=== PATIENT | male | born 1970 ===

== ENCOUNTER 2016-06-28 15:32 | Inpatient (IN) | payer OTHER, MEDICAID ==
[2016-06-28 15:34] VITALS: BMI 29.4
[2016-06-28] MEDS: Ammonium Lactate 12% Cream (140 g) TOP SCH (17:12)
[2016-06-28] MEDS: Piperacillin/Tazobact 3.375 GM in Sodium Chloride 0.9% 100 ML IVPB SCH ×2 (17:13→23:48)
[2016-06-29] MEDS: Piperacillin/Tazobact 3.375 GM in Sodium Chloride 0.9% 100 ML IVPB SCH ×3 (06:06→17:43)
[2016-06-29] MEDS: Levothyroxine 125 MCG TAB PO SCH (06:10)
--- NOTE | 2016-06-29 07:14 | CP.PCM.HP ---
<Marlena Huff - Last Filed: 06/29/16 13:17> History of Present Illness - History of Present Illness History of Present Illness: 46 y/o male initially admitted to inpatient for lower extremity cellulites, ID recommended 2 weeks of IV antibiotics. given pt remain stable through out hospital stay with any acute events there was indication to keep him inpatient so was discharged to TCU to complete antibiotic treatment. Pt seen and examined this morning, does not have any complaints, states lower extremity has improved a lot as far as swelling and redness goes. denies any headache, abdominal pain, nausea, vomiting or diarrhea Present on Admission - Present on Admission Any Indicators Present on Admission: No Review of Systems - Review of Systems All systems: reviewed and no additional remarkable complaints except Review of Systems: Per HPI Past Patient History - Infectious Disease Hx of Infectious Diseases: None - Past Medical History & Family History Past Medical History?: Yes - Past Social History Smoking Status: Former Smoker - CARDIAC Hx Hypertension: Yes - PULMONARY Hx Chronic Obstructive Pulmonary Disease (COPD): Yes - HEMATOLOGICAL/ONCOLOGICAL Hx Blood Disorders: Yes Hx Anemia: Yes Hx Hepatitis C: Yes - INTEGUMENTARY Hx Cellulitis: Yes - MUSCULOSKELETAL/RHEUMATOLOGICAL Hx Arthritis: Yes Hx Falls: No Hx Osteoarthritis: Yes - PSYCHIATRIC Hx Psychosis: Yes Hx Substance Use: Yes 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 - SURGICAL HISTORY Hx Surgeries: No Hx Joint Replacement: Yes (left total knee replacement, right total hip replacement) - ANESTHESIA Hx Anesthesia: Yes Hx Anesthesia Reactions: No Hx Malignant Hyperthermia: No Has any member of the family had a problem w/ anesthesia?: No Meds Allergies/Adverse Reactions: Allergies Allergy/AdvReac Type Severity Reaction Status Date / Time No Known Allergies Allergy Verified 06/28/16 15:34 Physical Exam - Constitutional Appears: Non-toxic, No Acute Distress - Head Exam Head Exam: NORMOCEPHALIC - Eye Exam Eye Exam: Normal appearance, PERRL Pupil Exam: NORMAL ACCOMODATION - ENT Exam ENT Exam: Mucous Membranes Moist - Respiratory Exam Respiratory Exam: Clear to Auscultation Bilateral, NORMAL BREATHING PATTERN. absent: Rhonchi, Wheezes - Cardiovascular Exam Cardiovascular Exam: REGULAR RHYTHM, +S1, +S2 - GI/Abdominal Exam GI & Abdominal Exam: Normal Bowel Sounds, Soft. absent: Tenderness - Extremities Exam Extremities exam: Negative for: calf tenderness Additional comments: erythema has improved, swelling has improved. no tenderness - Neurological Exam Neurological exam: Alert, CN II-XII Intact, Oriented x3 Results - Vital Signs Recent Vital Signs: Last Vital Signs Temp 97.9 F 06/28/16 20:35 Pulse 68 06/28/16 20:35 Resp 20 06/28/16 20:35 BP 113/72 06/28/16 20:35 Pulse Ox 98 06/28/16 20:35 Assessment & Plan - Assessment and Plan (Free Text) Assessment: 46 y/o male admitted to TCU to complete course (1 more week) of antibiotic for lower extremity cellulitis Plan: Lower Extremity Cellulitis Continue with Vanco + Zosyn as ordered (day 8 of 14) continue to monitor resume home medication Physical therapy eval and treat diet- hearty healthy DVT- scd, lovenox <Jas Andino - Last Filed: 07/03/16 17:18> Results - Vital Signs Recent Vital Signs: Last Vital Signs Temp 97.9 F 07/03/16 07:52 Pulse 69 07/03/16 08:32 Resp 20 07/03/16 07:52 BP 112/62 07/03/16 08:32 Pulse Ox 100 07/03/16 07:52 - Labs Result Diagrams: 07/02/16 05:30 07/02/16 05:30 Assessment & Plan - Assessment and Plan (Free Text) Assessment: Patient was personally seen and examined by me in rounds with residents. Available labs and diagnostic data reviewed. Case, Patient's condition and management plan discussed with residents in rounds. Agree with resident's documentation. Plan: As ordered. Jas Andino MD
[2016-06-29] MEDS: hydroCHLOROthiazide-Triamterene 25 mg-37.5 mg Cap UD PO SCH (08:43)
[2016-06-29] MEDS: Ammonium Lactate 12% Cream (140 g) TOP SCH ×2 (08:44→17:43)
[2016-06-29] MEDS: Multivitamin With Minerals Tab PO SCH (08:45)
[2016-06-30] MEDS: Piperacillin/Tazobact 3.375 GM in Sodium Chloride 0.9% 100 ML IVPB SCH ×5 (00:09→23:44)
[2016-06-30] MEDS: Levothyroxine 125 MCG TAB PO SCH (05:51)
--- NOTE | 2016-06-30 08:07 | PN ---
DATE: 06/30/2016 The patient seen and examined. Interim events noted. The patient remains in transitional care unit on IV antibiotic. The patient feels better, has some chronic pain, it is controlled, although does n ot really use any pain medication. PHYSICAL EXAMINATION: GENERAL: The patient is in no acute distress. VITAL SIGNS: Stable. HEART: S1, S2 normal, regular. LUNGS: Good bilateral air exchange. ABDOMEN: Soft, nontender. EXTREMITIES: No edema, no calf swelling, no tenderness, no acute ischemia. CENTRAL NERVOUS SYSTEM: Essentially unchanged. SKIN: Cellulitic changes of skin and lower extremities ____ The patient is functional usually ____ usual self. DIAGNOSTIC DATA: Available diagnostic data reviewed. Overall, the patient's medical good condition is stable. PLAN: As ordered. Jas Andino MD cc: [id number] TT: 06/30/2016 08:06:08 Confirmation # [id number] Dictation # [id number] [place]
[2016-06-30] MEDS: Multivitamin With Minerals Tab PO SCH (09:16)
[2016-06-30] MEDS: hydroCHLOROthiazide-Triamterene 25 mg-37.5 mg Cap UD PO SCH (09:17)
[2016-06-30] MEDS: Ammonium Lactate 12% Cream (140 g) TOP SCH ×2 (09:18→17:04)
[2016-07-01] MEDS: Piperacillin/Tazobact 3.375 GM in Sodium Chloride 0.9% 100 ML IVPB SCH ×4 (05:55→23:14)
[2016-07-01] MEDS: Levothyroxine 125 MCG TAB PO SCH (05:59)
[2016-07-01] MEDS: Multivitamin With Minerals Tab PO SCH (08:53)
[2016-07-01] MEDS: Ammonium Lactate 12% Cream (140 g) TOP SCH ×2 (08:54→18:35)
[2016-07-01] MEDS: hydroCHLOROthiazide-Triamterene 25 mg-37.5 mg Cap UD PO SCH (08:54)
--- NOTE | 2016-07-01 09:17 | PN ---
DATE: 07/01/2016 The patient is seen and examined. Interim events noted. The patient remains in transitional care un it. The patient feels okay. No pain in the leg, although he has chronic pain of the arthritis contr olled adequately. He was able to do his ADLs. No chest pain, no shortness of breath. PHYSICAL EXAMINATION: GENERAL: The patient is in no acute distress. VITAL SIGNS: Stable. HEART: S1, S2 normal, regular. LUNGS: Good bilateral air exchange. ABDOMEN: Soft, nontender. EXTREMITIES: ____. No distal neurovascular compromise. CENTRAL NERVOUS SYSTEM: Essentially unchanged. DIAGNOSTIC DATA: Available diagnostic data reviewed. Overall, the patient's general medical condition is slowly improving. IV antibiotic will be continue d. PLAN: As ordered. Jas Andino MD cc: [id number] TT: 07/01/2016 09:16:50 Confirmation # [id number] Dictation # [id number]
[2016-07-02 05:48] LABS: HEMATOCRIT 36.9 % (35.0-51.0); MEAN CELL VOLUME 98.2 fl (80.0-94.0); MEAN CORPUSCULAR HGB CONC 34.7 g/dL (33.0-37.0); RED CELL DISTRIBUTION WIDTH 12.6 % (11.5-14.5); WHITE BLOOD COUNT 6.1 K/uL (4.8-10.8)
[2016-07-02] MEDS: Levothyroxine 125 MCG TAB PO SCH (06:37)
[2016-07-02 06:42] LABS: ALB/GLOB RATIO 1.2 (1.0-2.1); ALKALINE PHOSPHATASE 51 U/L (38-126); ALT/SGPT 31 U/L (21-72); AST/SGOT 24 U/L (17-59); BILIRUBIN,TOTAL 0.6 mg/dl (0.2-1.3); BLOOD UREA NITROGEN 15 mg/dl (9-20); CALCIUM 9.4 mg/dL (8.4-10.2); CARBON DIOXIDE 27 mmol/L (22-30); CHLORIDE 101 mmol/L (98-107); GFR AFRICAN-AMERICAN > 60; GLUCOSE,RANDOM 82 mg/dL (75-110); POTASSIUM 3.8 MMOL/L (3.6-5.0); SODIUM 145 mmol/l (132-148); TOTAL PROTEIN 7.4 G/DL (6.3-8.2)
[2016-07-02] MEDS: Piperacillin/Tazobact 3.375 GM in Sodium Chloride 0.9% 100 ML IVPB SCH ×4 (06:55→23:52)
--- NOTE | 2016-07-02 08:13 | PN ---
DATE: 07/02/2016 The patient seen and examined. Interim events noted. The patient remains in transitional care unit. The patient feels better. Leg pain is improving. No chest pain or shortness of breath but the chr onic arthritis pain remains. PHYSICAL EXAMINATION: GENERAL: The patient is in no acute distress. VITAL SIGNS: Stable. HEART: S1, S2 normal, regular. LUNGS: Good bilateral air entry. ABDOMEN: Soft, nontender. EXTREMITIES: Cellulitis is remarkably improving. Ulcer healed. No sign of acute distal neurovascul ar compromise. CENTRAL NERVOUS SYSTEM: Essentially unchanged. DIAGNOSTIC DATA: Available diagnostic data reviewed. CBC and CMP today morning is acceptable. Overall, patient's general medical condition is stable and improving. Case discussed with orthopedic over the weekend. The patient might go for hip replacement once cellulitis treatment is over. PLAN: As ordered. Jas Andino MD cc: [id number] TT: 07/02/2016 08:13:04 Confirmation # [id number] Dictation # [id number] jeremy
[2016-07-02] MEDS: hydroCHLOROthiazide-Triamterene 25 mg-37.5 mg Cap UD PO SCH (09:18)
[2016-07-02] MEDS: Ammonium Lactate 12% Cream (140 g) TOP SCH ×2 (09:20→17:29)
[2016-07-02] MEDS: Multivitamin With Minerals Tab PO SCH (09:21)
--- NOTE | 2016-07-02 13:20 | RAD ---
PROCEDURE: Left femur HISTORY: possible surgery left hip COMPARISON: 06/27/2016 pelvis left hip. TECHNIQUE: Standard protocol for this study/examination. FINDINGS: Stable findings proximal left femur. Severe degenerative changes, evidence of avascular necrosis, partial collapse of left femoral head, subchondral cyst formation and proliferative changes. No abnormalities identified with respect to visualize components left TKA. IMPRESSION: No acute findings related to/accounting for the clinical presentation.
--- NOTE | 2016-07-02 13:29 | RAD ---
PROCEDURE: Pelvis left hip HISTORY: possible surgery of left hip COMPARISON: 06/27/2016 left hip. July 02, 2016. Left femur reported separately TECHNIQUE: Standard protocol for this study/examination. 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 This includes deformity, partial collapse of the femoral head. Subchondral cyst formation. Proliferative degenerative changes involving the joint noted. Intact pelvic ring. Unremarkable, as visualized right CRYSTAL. IMPRESSION: Minor-severe AVN left hip.
--- NOTE | 2016-07-02 20:20 | CP.PCM.PN ---
Subjective - Date & Time of Evaluation Date of Evaluation: 07/02/16 Time of Evaluation: 20:20 - Subjective Subjective: ID NOTE WOULD RX C IV ANTIBIOTICS FOR THIS WEEK PRIOR TO CONDIDERATION OF ANY SURGERY Objective - Vital Signs/Intake and Output Vital Signs (last 24 hours): Temp Pulse Resp BP Pulse Ox 97.3 F L 70 20 120/71 98 07/02/16 16:31 07/02/16 20:15 07/02/16 16:31 07/02/16 20:15 07/02/16 16:31 - Medications Medications: Current Medications Acetaminophen (Tylenol 325mg Tab) 650 mg PO Q6 PRN PRN Reason: Pain, Mild (1-3) Cholecalciferol (Vitamin D) 1,000 iu PO DAILY [facility] Last Admin: 07/02/16 09:21 Dose: 1,000 iu Diphenhydramine HCl (Benadryl) 50 mg PO Q6 PRN PRN Reason: Itching / Pruritus Last Admin: 06/28/16 21:06 Dose: 50 mg Ferrous Sulfate (Feosol) 325 mg PO DAILY [facility] Last Admin: 07/02/16 09:19 Dose: 325 mg Piperacillin Sod/Tazobactam (Sod 3.375 gm/ Sodium Chloride) 100 mls @ 100 mls/ hr IVPB 0600,1200,1800,0000 [facility] Last Admin: 07/02/16 17:31 Dose: 100 mls/hr Vancomycin HCl 1.25 gm/ Sodium (Chloride) 250 mls @ 166.667 mls/hr IVPB Q12@ 0500,1700 [facility] Last Admin: 07/02/16 18:52 Dose: 166.667 mls/hr Lactic Acid (Lac-Hydrin 12% Cream (140 G)) 1 ea TOP BID [facility] Last Admin: 07/02/16 17:29 Dose: 1 appful Levothyroxine Sodium (Synthroid) 125 mcg PO DAILY@0630 [facility] Last Admin: 07/02/16 06:37 Dose: 125 mcg Metoprolol Tartrate (Lopressor) 50 mg PO Q12 [facility] Last Admin: 07/02/16 20:15 Dose: 50 mg Multivitamins/Minerals (Therapeutic-M Tab) 1 tab PO DAILY [facility] Last Admin: 07/02/16 09:21 Dose: 1 tab Triamterene/HCTZ (Dyazide 25 Mg-37.5 Mg) 1 cap PO DAILY [facility] Last Admin: 07/02/16 09:18 Dose: 1 cap - Labs Labs: 07/02/16 05:30 07/02/16 05:30
[2016-07-03] MEDS: Piperacillin/Tazobact 3.375 GM in Sodium Chloride 0.9% 100 ML IVPB SCH ×3 (06:03→17:50)
[2016-07-03] MEDS: Levothyroxine 125 MCG TAB PO SCH (06:09)
--- NOTE | 2016-07-03 07:27 | CP.PCM.PN ---
<Marlena Huff - Last Filed: 07/03/16 10:37> Subjective - Date & Time of Evaluation Date of Evaluation: 07/03/16 Time of Evaluation: 08:30 - Subjective Subjective: Pt seen and examined at bedside, does not have any complaints. Per nurse senior software development manager and other pts on the floor, pt screams out a lot of bible verses and random stuff and it not entirely organized. Objective - Vital Signs/Intake and Output Vital Signs (last 24 hours): Temp Pulse Resp BP Pulse Ox 97.2 F L 70 20 120/71 99 07/02/16 20:23 07/02/16 20:23 07/02/16 20:23 07/02/16 20:23 07/02/16 20:23 - Medications Medications: Current Medications Acetaminophen (Tylenol 325mg Tab) 650 mg PO Q6 PRN PRN Reason: Pain, Mild (1-3) Cholecalciferol (Vitamin D) 1,000 iu PO DAILY [facility] Last Admin: 07/02/16 09:21 Dose: 1,000 iu Diphenhydramine HCl (Benadryl) 50 mg PO Q6 PRN PRN Reason: Itching / Pruritus Last Admin: 06/28/16 21:06 Dose: 50 mg Ferrous Sulfate (Feosol) 325 mg PO DAILY [facility] Last Admin: 07/02/16 09:19 Dose: 325 mg Piperacillin Sod/Tazobactam (Sod 3.375 gm/ Sodium Chloride) 100 mls @ 100 mls/ hr IVPB 0600,1200,1800,0000 [facility] Last Admin: 07/03/16 06:03 Dose: 100 mls/hr Vancomycin HCl 1.25 gm/ Sodium (Chloride) 250 mls @ 166.667 mls/hr IVPB Q12@ 0500,1700 [facility] Last Admin: 07/03/16 04:03 Dose: 166.667 mls/hr Lactic Acid (Lac-Hydrin 12% Cream (140 G)) 1 ea TOP BID [facility] Last Admin: 07/02/16 17:29 Dose: 1 appful Levothyroxine Sodium (Synthroid) 125 mcg PO DAILY@0630 [facility] Last Admin: 07/03/16 06:09 Dose: 125 mcg Metoprolol Tartrate (Lopressor) 50 mg PO Q12 [facility] Last Admin: 07/02/16 20:15 Dose: 50 mg Multivitamins/Minerals (Therapeutic-M Tab) 1 tab PO DAILY [facility] Last Admin: 07/02/16 09:21 Dose: 1 tab Triamterene/HCTZ (Dyazide 25 Mg-37.5 Mg) 1 cap PO DAILY [facility] Last Admin: 07/02/16 09:18 Dose: 1 cap - Labs Labs: 07/02/16 05:30 07/02/16 05:30 - Constitutional Appears: Non-toxic, No Acute Distress - Head Exam Head Exam: NORMOCEPHALIC - Eye Exam Eye Exam: Normal appearance, PERRL Pupil Exam: NORMAL ACCOMODATION - ENT Exam ENT Exam: Mucous Membranes Moist - Respiratory Exam Respiratory Exam: Clear to Ausculation Bilateral, NORMAL BREATHING PATTERN. absent: Rhonchi, Wheezes - Cardiovascular Exam Cardiovascular Exam: REGULAR RHYTHM, +S1, +S2 - GI/Abdominal Exam GI & Abdominal Exam: Soft, Normal Bowel Sounds. absent: Tenderness - Extremities Exam Additional comments: Lower extremity erythema is improving greatly, and swelling is improving as well - Neurological Exam Neurological Exam: Alert, Awake, CN II-XII Intact - Psychiatric Exam Additional comments: flight of ideas, pressured speech Assessment and Plan - Assessment and Plan (Free Text) Assessment: 46 y/o male admitted to TCU to complete course (1 more week) of antibiotic for lower extremity cellulitis Plan: Lower Extremity Cellulitis Continue with Vanco + Zosyn as ordered (day 12 of 14) continue to monitor flight of ideas, pressured speech- psychiatry re-consulted resume home medication Physical therapy eval and treat diet- hearty healthy DVT- scd, lovenox Disposition: PT to be readmitted inpatient for HIP replacement surgery following completion of antibiotics <Jas Andino K - Last Filed: 07/03/16 17:19> Objective - Vital Signs/Intake and Output Vital Signs (last 24 hours): Temp Pulse Resp BP Pulse Ox 97.9 F 69 20 112/62 100 07/03/16 07:52 07/03/16 08:32 07/03/16 07:52 07/03/16 08:32 07/03/16 07:52 - Medications Medications: Current Medications Acetaminophen (Tylenol 325mg Tab) 650 mg PO Q6 PRN PRN Reason: Pain, Mild (1-3) Cholecalciferol (Vitamin D) 1,000 iu PO DAILY [facility] Last Admin: 07/03/16 08:32 Dose: 1,000 iu Diphenhydramine HCl (Benadryl) 50 mg PO Q6 PRN PRN Reason: Itching / Pruritus Last Admin: 06/28/16 21:06 Dose: 50 mg Ferrous Sulfate (Feosol) 325 mg PO DAILY [facility] Last Admin: 07/03/16 08:32 Dose: 325 mg Piperacillin Sod/Tazobactam (Sod 3.375 gm/ Sodium Chloride) 100 mls @ 100 mls/ hr IVPB 0600,1200,1800,0000 [facility] Last Admin: 07/03/16 12:31 Dose: 100 mls/hr Vancomycin HCl 1.25 gm/ Sodium (Chloride) 250 mls @ 166.667 mls/hr IVPB Q12@ 0500,1700 [facility] Last Admin: 07/03/16 04:03 Dose: 166.667 mls/hr Lactic Acid (Lac-Hydrin 12% Cream (140 G)) 1 ea TOP BID [facility] Last Admin: 07/03/16 08:32 Dose: 1 appful Levothyroxine Sodium (Synthroid) 125 mcg PO DAILY@0630 [facility] Last Admin: 07/03/16 06:09 Dose: 125 mcg Metoprolol Tartrate (Lopressor) 50 mg PO Q12 [facility] Last Admin: 07/03/16 08:32 Dose: 50 mg Multivitamins/Minerals (Therapeutic-M Tab) 1 tab PO DAILY [facility] Last Admin: 07/03/16 08:32 Dose: 1 tab Triamterene/HCTZ (Dyazide 25 Mg-37.5 Mg) 1 cap PO DAILY [facility] Last Admin: 07/03/16 08:32 Dose: 1 cap - Labs Labs: 07/02/16 05:30 07/02/16 05:30 Assessment and Plan - Assessment and Plan (Free Text) Assessment: Patient was personally seen and examined by me in rounds with residents. Available labs and diagnostic data reviewed. Case, Patient's condition and management plan discussed with residents in rounds. Agree with resident's documentation. Plan: As ordered. Jas Andino MD
[2016-07-03] MEDS: Ammonium Lactate 12% Cream (140 g) TOP SCH ×2 (08:32→17:50)
[2016-07-03] MEDS: Multivitamin With Minerals Tab PO SCH (08:32)
[2016-07-03] MEDS: hydroCHLOROthiazide-Triamterene 25 mg-37.5 mg Cap UD PO SCH (08:32)
--- NOTE | 2016-07-03 13:50 | CP.PCM.CON ---
History of Present Illness - History of Present Illness History of Present Illness: Psychiatry consult called for pressured and disorganized speech CC: "I don't need to take medications" HPI: 46 y/o male initially admitted to inpatient for lower extremity cellulites , ID recommended 2 weeks of IV antibiotics, discharged to TCU to complete antibiotic treatment. Patient was irritable that he was speaking with the psychiatrist. He was able to clearly state that he is not interested in psychiatric treatment at this time. As per previous consult information: He is 5 years sober from an alcohol and drug dependence that he states was "very bad" pt denies being in any psychiatric treatment or taking psychiatric medications. pt states he follows up regularly with his medical appointments and cares for self. he denies any legal problems. pt was unaware that psychiatry would be consulted and was a little defensive because of this. he does admit that he talks to himself constantly. he states he does not have friends and this is how he socializes with himself. he does not directly admit to hearing voices, and he does not appear to be responding to internal stimuli currently. he denies that he has command hallucinations. he denies that he feels depressed. he denies that he is having any thoughts to harm himself. his thoughts are a bit circumstantial and he does express himself in a vague and round-about manner. he declines need for psychiatric treatment. Past psych: reports being treated in the past while he was using drugs. reports suicidal behaviors when taking drugs. denies recent treatment Social history: lives with mother. denies current legal problems. states he attends mass regularly Substance use: denies current use. states he's 5 yeas sober. states he abused alcohol and "hard drugs" no specifics given. Medical: as per h + p note. currently in hospital for cellulitis MSE: A + O x 3, calm, but irritated that he was speaking with a psychiatrist, good eye contact, speech normal rate/rhythm/volume; thought process-not linear but coherent; thought content- hyperreligious, denies AH/VH/SI/HI; insight/ judgment-fair Assessment: Alcohol dependence in sustained remission Polysubstance dependence in remission r/o psychotic disorder unspecified Recommendation: -Would not recommend any psychiatric intervention at this point as pt's symptoms are not interfering with his treatment -Patient not agreeable to psychiatric medications, treatment or hospitalization and does not meet criteria for involuntary psychiatric admission -Re-consult with further questions, Dr. De Luna [phone] Past Patient History - Infectious Disease Hx of Infectious Diseases: None - Past Medical History & Family History Past Medical History?: Yes - Past Social History Smoking Status: Former Smoker - CARDIAC Hx Hypertension: Yes - PULMONARY Hx Chronic Obstructive Pulmonary Disease (COPD): Yes - HEMATOLOGICAL/ONCOLOGICAL Hx Blood Disorders: Yes Hx Anemia: Yes Hx Hepatitis C: Yes - INTEGUMENTARY Hx Cellulitis: Yes - MUSCULOSKELETAL/RHEUMATOLOGICAL Hx Arthritis: Yes Hx Falls: No Hx Osteoarthritis: Yes - PSYCHIATRIC Hx Psychosis: Yes Hx Substance Use: Yes 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 - SURGICAL HISTORY Hx Surgeries: No Hx Joint Replacement: Yes (left total knee replacement, right total hip replacement) - ANESTHESIA Hx Anesthesia: Yes Hx Anesthesia Reactions: No Hx Malignant Hyperthermia: No Has any member of the family had a problem w/ anesthesia?: No Meds Allergies/Adverse Reactions: Allergies Allergy/AdvReac Type Severity Reaction Status Date / Time No Known Allergies Allergy Verified 06/28/16 15:34 - Medications Medications: Current Medications Acetaminophen (Tylenol 325mg Tab) 650 mg PO Q6 PRN PRN Reason: Pain, Mild (1-3) Cholecalciferol (Vitamin D) 1,000 iu PO DAILY [facility] Last Admin: 07/03/16 08:32 Dose: 1,000 iu Diphenhydramine HCl (Benadryl) 50 mg PO Q6 PRN PRN Reason: Itching / Pruritus Last Admin: 06/28/16 21:06 Dose: 50 mg Ferrous Sulfate (Feosol) 325 mg PO DAILY [facility] Last Admin: 07/03/16 08:32 Dose: 325 mg Piperacillin Sod/Tazobactam (Sod 3.375 gm/ Sodium Chloride) 100 mls @ 100 mls/ hr IVPB 0600,1200,1800,0000 [facility] Last Admin: 07/03/16 12:31 Dose: 100 mls/hr Vancomycin HCl 1.25 gm/ Sodium (Chloride) 250 mls @ 166.667 mls/hr IVPB Q12@ 0500,1700 [facility] Last Admin: 07/03/16 04:03 Dose: 166.667 mls/hr Lactic Acid (Lac-Hydrin 12% Cream (140 G)) 1 ea TOP BID [facility] Last Admin: 07/03/16 08:32 Dose: 1 appful Levothyroxine Sodium (Synthroid) 125 mcg PO DAILY@0630 [facility] Last Admin: 07/03/16 06:09 Dose: 125 mcg Metoprolol Tartrate (Lopressor) 50 mg PO Q12 [facility] Last Admin: 07/03/16 08:32 Dose: 50 mg Multivitamins/Minerals (Therapeutic-M Tab) 1 tab PO DAILY [facility] Last Admin: 07/03/16 08:32 Dose: 1 tab Triamterene/HCTZ (Dyazide 25 Mg-37.5 Mg) 1 cap PO DAILY [facility] Last Admin: 07/03/16 08:32 Dose: 1 cap Results - Vital Signs Recent Vital Signs: Last Vital Signs Temp 97.9 F 07/03/16 07:52 Pulse 69 07/03/16 08:32 Resp 20 07/03/16 07:52 BP 112/62 07/03/16 08:32 Pulse Ox 100 07/03/16 07:52 - Labs Result Diagrams: 07/02/16 05:30 07/02/16 05:30
--- NOTE | 2016-07-03 14:27 | PN ---
DATE: 07/03/2016 The patient seen and examined. Interim events noted. The patient remains in transitional care unit. Feels okay, no specific complaint, no chest pain or shortness of breath. PHYSICAL EXAMINATION: GENERAL: The patient is in no acute distress. VITAL SIGNS: Stable. Physical exam is essentially unchanged. ____. PLAN: As ordered. Jas Andino MD cc: [id number] TT: 07/03/2016 10:40:33 Confirmation # [id number] Dictation # [id number] in 07/03/2016 13:26:31 [place]
[2016-07-04] MEDS: Piperacillin/Tazobact 3.375 GM in Sodium Chloride 0.9% 100 ML IVPB SCH ×4 (00:12→18:35)
[2016-07-04] MEDS: Levothyroxine 125 MCG TAB PO SCH (05:55)
[2016-07-04] MEDS: hydroCHLOROthiazide-Triamterene 25 mg-37.5 mg Cap UD PO SCH (08:41)
[2016-07-04] MEDS: Multivitamin With Minerals Tab PO SCH (08:42)
[2016-07-04] MEDS: Ammonium Lactate 12% Cream (140 g) TOP SCH ×2 (08:43→18:35)
--- NOTE | 2016-07-04 10:57 | CP.PCM.PN ---
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 He denies any pain in his lower extremity but has pain in the hip Objective - Vital Signs/Intake and Output Vital Signs (last 24 hours): Temp Pulse Resp BP Pulse Ox 97.8 F 70 20 129/66 100 07/04/16 08:42 07/04/16 08:42 07/04/16 08:42 07/04/16 08:42 07/04/16 08:42 - Medications Medications: Current Medications Acetaminophen (Tylenol 325mg Tab) 650 mg PO Q6 PRN PRN Reason: Pain, Mild (1-3) Cholecalciferol (Vitamin D) 1,000 iu PO DAILY [facility] Last Admin: 07/04/16 08:42 Dose: 1,000 iu Diphenhydramine HCl (Benadryl) 50 mg PO Q6 PRN PRN Reason: Itching / Pruritus Last Admin: 06/28/16 21:06 Dose: 50 mg Ferrous Sulfate (Feosol) 325 mg PO DAILY [facility] Last Admin: 07/04/16 08:42 Dose: 325 mg Piperacillin Sod/Tazobactam (Sod 3.375 gm/ Sodium Chloride) 100 mls @ 100 mls/ hr IVPB 0600,1200,1800,0000 [facility] Last Admin: 07/04/16 05:48 Dose: 100 mls/hr Vancomycin HCl 1.25 gm/ Sodium (Chloride) 250 mls @ 166.667 mls/hr IVPB Q12@ 0500,1700 [facility] Last Admin: 07/04/16 04:12 Dose: 166.667 mls/hr Lactic Acid (Lac-Hydrin 12% Cream (140 G)) 1 ea TOP BID [facility] Last Admin: 07/04/16 08:43 Dose: 1 appful Levothyroxine Sodium (Synthroid) 125 mcg PO DAILY@0630 [facility] Last Admin: 07/04/16 05:55 Dose: 125 mcg Metoprolol Tartrate (Lopressor) 50 mg PO Q12 [facility] Last Admin: 07/04/16 08:41 Dose: 50 mg Multivitamins/Minerals (Therapeutic-M Tab) 1 tab PO DAILY [facility] Last Admin: 07/04/16 08:42 Dose: 1 tab Rivaroxaban (Xarelto) 20 mg PO DAILY@0800 [facility] PRN Reason: Protocol Last Admin: 07/04/16 08:41 Dose: 20 mg Triamterene/HCTZ (Dyazide 25 Mg-37.5 Mg) 1 cap PO DAILY [facility] Last Admin: 07/04/16 08:41 Dose: 1 cap - Labs Labs: 07/02/16 05:30 07/02/16 05:30 - Constitutional Appears: Non-toxic, No Acute Distress - Head Exam Head Exam: NORMOCEPHALIC - Eye Exam Eye Exam: Normal appearance, PERRL Pupil Exam: NORMAL ACCOMODATION - ENT Exam ENT Exam: Mucous Membranes Moist - Respiratory Exam Respiratory Exam: Clear to Ausculation Bilateral, NORMAL BREATHING PATTERN. absent: Rhonchi, Wheezes - GI/Abdominal Exam GI & Abdominal Exam: Soft, Normal Bowel Sounds - Extremities Exam Extremities Exam: absent: Calf Tenderness Additional comments: lower extremity redness and swelling improving - Neurological Exam Neurological Exam: Awake, CN II-XII Intact Assessment and Plan - Assessment and Plan (Free Text) Assessment: 46 y/o male admitted to TCU to complete course of antibiotic for lower extremity cellulitis Plan: Lower Extremity Cellulitis Continue with Vanco + Zosyn as ordered (day 13 of 14) continue to monitor flight of ideas, pressured speech- psychiatry re-consulted Psychiatry recommendation appreciated resume home medication Physical therapy eval and treat diet- hearty healthy DVT- scd, lovenox Disposition: PT to be readmitted inpatient for HIP replacement surgery following completion of antibiotics <Jas Andino K - Last Filed: 07/09/16 18:25> Objective - Vital Signs/Intake and Output Vital Signs (last 24 hours): Temp Pulse Resp BP Pulse Ox 97 F L 67 20 120/77 99 07/09/16 16:20 07/09/16 16:20 07/09/16 16:20 07/09/16 16:20 07/09/16 16:20 - Medications Medications: Current Medications Acetaminophen (Tylenol 325mg Tab) 650 mg PO Q6 PRN PRN Reason: Pain, Mild (1-3) Cholecalciferol (Vitamin D) 1,000 iu PO DAILY [facility] Last Admin: 07/09/16 08:27 Dose: 1,000 iu Diphenhydramine HCl (Benadryl) 50 mg PO Q6 PRN PRN Reason: Itching / Pruritus Last Admin: 06/28/16 21:06 Dose: 50 mg Ferrous Sulfate (Feosol) 325 mg PO DAILY [facility] Last Admin: 07/09/16 08:27 Dose: 325 mg Ertapenem 1 gm/ Sodium (Chloride) 100 mls @ 100 mls/hr IVPB DAILY [facility] Last Admin: 07/09/16 08:28 Dose: 100 mls/hr Vancomycin HCl 1 gm/ Sodium (Chloride) 250 mls @ 166.667 mls/hr IVPB 0500,1700 [facility] Last Admin: 07/09/16 17:18 Dose: 166.667 mls/hr Lactic Acid (Lac-Hydrin 12% Cream (140 G)) 1 ea TOP BID [facility] Last Admin: 07/09/16 17:18 Dose: 1 appful Levothyroxine Sodium (Synthroid) 125 mcg PO DAILY@0630 [facility] Last Admin: 07/09/16 07:20 Dose: 125 mcg Metoprolol Tartrate (Lopressor) 50 mg PO Q12 [facility] Last Admin: 07/09/16 08:27 Dose: 50 mg Multivitamins/Minerals (Therapeutic-M Tab) 1 tab PO DAILY [facility] Last Admin: 07/09/16 08:27 Dose: 1 tab Triamterene/HCTZ (Dyazide 25 Mg-37.5 Mg) 1 cap PO DAILY [facility] Last Admin: 07/09/16 08:27 Dose: 1 cap - Labs Labs: 07/02/16 05:30 07/05/16 06:48 Assessment and Plan - Assessment and Plan (Free Text) Assessment: Patient was personally seen and examined by me in rounds with residents. Available labs and diagnostic data reviewed. Case, Patient's condition and management plan discussed with residents in rounds. Agree with resident's documentation. Plan: As ordered. Jas Andino MD
--- NOTE | 2016-07-04 19:24 | CP.PCM.PN ---
Subjective - Date & Time of Evaluation Date of Evaluation: 07/04/16 Time of Evaluation: 19:20 - Subjective Subjective: ID NOTE STILL HAS CHRONIC STASIS DERMATITIS/CELLULITIS BUT NO WEEPING AT PRESENT WOULD WANT HIM TO RECEIVE AT LEAST 4 WEEKS IV ANTIBIOTICS BEFORE CONSIDERING ANY JOINT REPLACEMENT WILL DISCUSS C Objective - Vital Signs/Intake and Output Vital Signs (last 24 hours): Temp Pulse Resp BP Pulse Ox 96.6 F L 67 20 119/73 95 07/04/16 16:30 07/04/16 16:30 07/04/16 16:30 07/04/16 16:30 07/04/16 16:30 - Medications Medications: Current Medications Acetaminophen (Tylenol 325mg Tab) 650 mg PO Q6 PRN PRN Reason: Pain, Mild (1-3) Cholecalciferol (Vitamin D) 1,000 iu PO DAILY [facility] Last Admin: 07/04/16 08:42 Dose: 1,000 iu Diphenhydramine HCl (Benadryl) 50 mg PO Q6 PRN PRN Reason: Itching / Pruritus Last Admin: 06/28/16 21:06 Dose: 50 mg Ferrous Sulfate (Feosol) 325 mg PO DAILY [facility] Last Admin: 07/04/16 08:42 Dose: 325 mg Piperacillin Sod/Tazobactam (Sod 3.375 gm/ Sodium Chloride) 100 mls @ 100 mls/ hr IVPB 0600,1200,1800,0000 [facility] Last Admin: 07/04/16 18:35 Dose: 100 mls/hr Vancomycin HCl 1.25 gm/ Sodium (Chloride) 250 mls @ 166.667 mls/hr IVPB Q12@ 0500,1700 [facility] Last Admin: 07/04/16 16:25 Dose: 166.667 mls/hr Lactic Acid (Lac-Hydrin 12% Cream (140 G)) 1 ea TOP BID [facility] Last Admin: 07/04/16 18:35 Dose: Not Given Levothyroxine Sodium (Synthroid) 125 mcg PO DAILY@0630 [facility] Last Admin: 07/04/16 05:55 Dose: 125 mcg Metoprolol Tartrate (Lopressor) 50 mg PO Q12 [facility] Last Admin: 07/04/16 08:41 Dose: 50 mg Multivitamins/Minerals (Therapeutic-M Tab) 1 tab PO DAILY [facility] Last Admin: 07/04/16 08:42 Dose: 1 tab Rivaroxaban (Xarelto) 20 mg PO DAILY@0800 [facility] PRN Reason: Protocol Last Admin: 07/04/16 08:41 Dose: 20 mg Triamterene/HCTZ (Dyazide 25 Mg-37.5 Mg) 1 cap PO DAILY [facility] Last Admin: 07/04/16 08:41 Dose: 1 cap - Labs Labs: 07/02/16 05:30 07/02/16 05:30
[2016-07-05] MEDS: Levothyroxine 125 MCG TAB PO SCH (05:34)
[2016-07-05 07:17] LABS: BLOOD UREA NITROGEN 12 mg/dl (9-20); CALCIUM 9.3 mg/dL (8.4-10.2); CARBON DIOXIDE 28 mmol/L (22-30); CHLORIDE 103 mmol/L (98-107); GFR AFRICAN-AMERICAN > 60; GLUCOSE,RANDOM 77 mg/dL (75-110); POTASSIUM 3.6 MMOL/L (3.6-5.0); SODIUM 144 mmol/l (132-148)
[2016-07-05] MEDS ORDERED: Pneumococcal 23-Valent Vaccine IM ONE (08:58)
[2016-07-05] MEDS: Multivitamin With Minerals Tab PO SCH (08:59)
[2016-07-05] MEDS: hydroCHLOROthiazide-Triamterene 25 mg-37.5 mg Cap UD PO SCH (09:00)
[2016-07-05] MEDS: Ammonium Lactate 12% Cream (140 g) TOP SCH ×2 (09:02→17:26)
--- NOTE | 2016-07-05 09:03 | PN ---
DATE: 07/05/2016 The patient is seen and examined. Interim events noted. Consults noted and appreciated. Infectious disease followup and intervention noted and appreciated. The patient remains in transitional care u nit on IV antibiotic for cellulitis. The patient feels okay. No chest pain, no shortness of breath. PHYSICAL EXAMINATION: GENERAL: The patient is in no acute distress. VITAL SIGNS: Stable. HEART: S1, S2 normal, regular. LUNGS: Good bilateral air entry. ABDOMEN: Soft, nontender. EXTREMITIES: Cellulitis is improving. ____, no calf swelling, no tenderness, no acute ischemia, no distal acute neurovascular compromise. CENTRAL NERVOUS SYSTEM: Essentially unchanged. DIAGNOSTIC DATA: Available diagnostic data reviewed. Overall, the patient's general medical condition is stable. PLAN: As ordered. Jas Andino MD cc: [id number] TT: 07/05/2016 09:02:59 Confirmation # [id number] Dictation # [id number] aparna
[2016-07-06] MEDS: Levothyroxine 125 MCG TAB PO SCH (05:42)
[2016-07-06] MEDS: Multivitamin With Minerals Tab PO SCH (08:40)
[2016-07-06] MEDS: Ammonium Lactate 12% Cream (140 g) TOP SCH ×2 (08:41→21:50)
[2016-07-06] MEDS: hydroCHLOROthiazide-Triamterene 25 mg-37.5 mg Cap UD PO SCH (08:45)
--- NOTE | 2016-07-06 08:52 | PN ---
DATE: 07/06/2016 The patient seen and examined. Interim events noted. The patient remains in transitional care unit on IV antibiotic. The patient feels okay. No specific complaint. No chest pain, no shortness of br eath. Leg pain improved. PHYSICAL EXAMINATION: GENERAL: The patient is in no acute distress. VITAL SIGNS: Stable. Physical exam is essentially unchanged. is improving. Overall, patient's general condition is stable and improving. PLAN: As ordered. Jas Andino MD cc: [id number] TT: 07/06/2016 08:52:01 Confirmation # [id number] Dictation # [id number] en
[2016-07-07] MEDS: Levothyroxine 125 MCG TAB PO SCH (06:44)
--- NOTE | 2016-07-07 08:31 | PN ---
DATE: 07/07/2016 The patient seen and examined. Interim events noted. The patient remains in transitional care unit. The patient feels okay. No specific medical complaint. Physical exam is essentially unchanged. Cellulitis is slowly resolving. DIAGNOSTIC DATA: Available diagnostic data reviewed. Overall, patient's general medical condition is stable. PLAN: As ordered. Jas Andino MD cc: [id number] TT: 07/07/2016 08:30:47 Confirmation # [id number] Dictation # [id number] jn
[2016-07-07] MEDS: Ammonium Lactate 12% Cream (140 g) TOP SCH ×2 (08:51→16:59)
[2016-07-07] MEDS: hydroCHLOROthiazide-Triamterene 25 mg-37.5 mg Cap UD PO SCH (08:51)
[2016-07-07] MEDS: Multivitamin With Minerals Tab PO SCH (08:52)
[2016-07-08] MEDS: Levothyroxine 125 MCG TAB PO SCH (07:06)
[2016-07-08] MEDS: hydroCHLOROthiazide-Triamterene 25 mg-37.5 mg Cap UD PO SCH (08:48)
[2016-07-08] MEDS: Multivitamin With Minerals Tab PO SCH (08:49)
[2016-07-08] MEDS: Ammonium Lactate 12% Cream (140 g) TOP SCH ×2 (08:50→17:29)
--- NOTE | 2016-07-08 17:49 | CP.PCM.PN ---
Subjective - Date & Time of Evaluation Date of Evaluation: 07/08/16 Time of Evaluation: 17:49 - Subjective Subjective: ID NOTE HAVE ADJUSTED DOSE OF VANCOMYCIN CHECK LABS Objective - Vital Signs/Intake and Output Vital Signs (last 24 hours): Temp Pulse Resp BP Pulse Ox 97.5 F L 60 20 118/69 100 07/08/16 08:19 07/08/16 08:49 07/08/16 08:19 07/08/16 08:49 07/08/16 08:19 - Medications Medications: Current Medications Acetaminophen (Tylenol 325mg Tab) 650 mg PO Q6 PRN PRN Reason: Pain, Mild (1-3) Cholecalciferol (Vitamin D) 1,000 iu PO DAILY [facility] Last Admin: 07/08/16 08:49 Dose: 1,000 iu Diphenhydramine HCl (Benadryl) 50 mg PO Q6 PRN PRN Reason: Itching / Pruritus Last Admin: 06/28/16 21:06 Dose: 50 mg Ferrous Sulfate (Feosol) 325 mg PO DAILY [facility] Last Admin: 07/08/16 08:49 Dose: 325 mg Vancomycin HCl 1.25 gm/ Sodium (Chloride) 250 mls @ 166.667 mls/hr IVPB Q12@ 0500,1700 [facility] Last Admin: 07/08/16 17:29 Dose: 166.667 mls/hr Ertapenem 1 gm/ Sodium (Chloride) 100 mls @ 100 mls/hr IVPB DAILY [facility] Last Admin: 07/08/16 08:50 Dose: 100 mls/hr Vancomycin HCl 1 gm/ Sodium (Chloride) 250 mls @ 166.667 mls/hr IVPB Q12 [facility] Lactic Acid (Lac-Hydrin 12% Cream (140 G)) 1 ea TOP BID [facility] Last Admin: 07/08/16 17:29 Dose: 1 appful Levothyroxine Sodium (Synthroid) 125 mcg PO DAILY@0630 [facility] Last Admin: 07/08/16 07:06 Dose: 125 mcg Metoprolol Tartrate (Lopressor) 50 mg PO Q12 [facility] Last Admin: 07/08/16 08:49 Dose: 50 mg Multivitamins/Minerals (Therapeutic-M Tab) 1 tab PO DAILY [facility] Last Admin: 07/08/16 08:49 Dose: 1 tab Triamterene/HCTZ (Dyazide 25 Mg-37.5 Mg) 1 cap PO DAILY [facility] Last Admin: 07/08/16 08:48 Dose: 1 cap - Labs Labs: 07/02/16 05:30 07/05/16 06:48
[2016-07-09] MEDS: Levothyroxine 125 MCG TAB PO SCH (07:20)
--- NOTE | 2016-07-09 08:16 | PN ---
DATE: 07/09/2016 The patient seen and examined. Interim events noted. The patient remains in transitional care unit. Denies any specific complaint. No chest pain or shortness of breath. PHYSICAL EXAMINATION: GENERAL: The patient is in no acute distress. VITAL SIGNS: Stable. HEART: S1, S2 normal, regular. LUNGS: Good bilateral air exchange. ABDOMEN: Soft, nontender. EXTREMITIES: No calf swelling, no tenderness. No acute ischemia. CENTRAL NERVOUS SYSTEM: Essentially unchanged. EXTREMITIES: Cellulitis is remarkably improving. No sign of distal neurovascular compromise. Overall, patient's general condition is slowly improving. PLAN: As ordered. Jas Andino MD cc: [id number] TT: 07/09/2016 08:15:37 Confirmation # [id number] Dictation # [id number] jeremy
[2016-07-09] MEDS: Multivitamin With Minerals Tab PO SCH (08:27)
[2016-07-09] MEDS: hydroCHLOROthiazide-Triamterene 25 mg-37.5 mg Cap UD PO SCH (08:27)
[2016-07-09] MEDS: Ammonium Lactate 12% Cream (140 g) TOP SCH ×2 (08:28→17:18)
--- NOTE | 2016-07-09 08:37 | PN ---
DATE: 07/08/2016 SUBJECTIVE: The patient is seen and examined. Interim events noted. The patient remains in transitional care unit on IV antibiotic. The patient feels okay. No chest pa in, no shortness of breath. ____. PHYSICAL EXAMINATION: GENERAL: The patient is in no acute distress. VITAL SIGNS: Stable. Physical exam is essentially unchanged. The patient's cellulitis is improving. Overall, the patient's ____ condition is stable. ____. Jas Andino MD cc: [id number] TT: 07/08/2016 10:58:34 Confirmation # [id number] Dictation # [id number] jn
[2016-07-10] MEDS: Levothyroxine 125 MCG TAB PO SCH (06:27)
[2016-07-10] MEDS: hydroCHLOROthiazide-Triamterene 25 mg-37.5 mg Cap UD PO SCH (09:01)
[2016-07-10] MEDS: Multivitamin With Minerals Tab PO SCH (09:02)
[2016-07-10] MEDS: Ammonium Lactate 12% Cream (140 g) TOP SCH ×2 (09:02→16:54)
--- NOTE | 2016-07-10 16:57 | CP.PCM.PN ---
Subjective - Date & Time of Evaluation Date of Evaluation: 07/10/16 Time of Evaluation: 16:56 - Subjective Subjective: id note vancomycin trough:11.3 have changed vancomycin to 750mg ivpb q12h Objective - Vital Signs/Intake and Output Vital Signs (last 24 hours): Temp Pulse Resp BP Pulse Ox 98.6 F 62 20 139/73 99 07/10/16 10:00 07/10/16 10:00 07/10/16 10:00 07/10/16 10:00 07/10/16 10:00 - Medications Medications: Current Medications Acetaminophen (Tylenol 325mg Tab) 650 mg PO Q6 PRN PRN Reason: Pain, Mild (1-3) Cholecalciferol (Vitamin D) 1,000 iu PO DAILY [facility] Last Admin: 07/10/16 09:02 Dose: 1,000 iu Diphenhydramine HCl (Benadryl) 50 mg PO Q6 PRN PRN Reason: Itching / Pruritus Last Admin: 06/28/16 21:06 Dose: 50 mg Ferrous Sulfate (Feosol) 325 mg PO DAILY [facility] Last Admin: 07/10/16 09:01 Dose: 325 mg Ertapenem 1 gm/ Sodium (Chloride) 100 mls @ 100 mls/hr IVPB DAILY [facility] Last Admin: 07/10/16 09:01 Dose: 100 mls/hr Vancomycin HCl 750 mg/ Sodium (Chloride) 250 mls @ 166.667 mls/hr IVPB Q12@0500 ,1700 [facility] Last Admin: 07/10/16 16:54 Dose: 166.667 mls/hr Lactic Acid (Lac-Hydrin 12% Cream (140 G)) 1 ea TOP BID [facility] Last Admin: 07/10/16 16:54 Dose: 1 applic Levothyroxine Sodium (Synthroid) 125 mcg PO DAILY@0630 [facility] Last Admin: 07/10/16 06:27 Dose: 125 mcg Metoprolol Tartrate (Lopressor) 50 mg PO Q12 [facility] Last Admin: 07/10/16 09:02 Dose: 50 mg Multivitamins/Minerals (Therapeutic-M Tab) 1 tab PO DAILY [facility] Last Admin: 07/10/16 09:02 Dose: 1 tab Triamterene/HCTZ (Dyazide 25 Mg-37.5 Mg) 1 cap PO DAILY [facility] Last Admin: 07/10/16 09:01 Dose: 1 cap - Labs Labs: 07/02/16 05:30 07/05/16 06:48
[2016-07-11] MEDS: Levothyroxine 125 MCG TAB PO SCH (06:32)
[2016-07-11 07:59] VITALS: RESP 20
[2016-07-11] MEDS: hydroCHLOROthiazide-Triamterene 25 mg-37.5 mg Cap UD PO SCH (08:25)
[2016-07-11] MEDS: Multivitamin With Minerals Tab PO SCH (08:25)
[2016-07-11] MEDS: Ammonium Lactate 12% Cream (140 g) TOP SCH ×2 (08:29→16:48)
--- NOTE | 2016-07-11 10:57 | PN ---
DATE: 07/09/2016 The patient seen and examined. Interim events noted. Consults noted are appreciated. The patient f eels okay. No specific complaint. No chest pain, no shortness of breath. Leg pain is improving. PHYSICAL EXAMINATION: GENERAL: The patient is in no acute distress. VITAL SIGNS: Stable. HEART: S1, S2 normal, regular. LUNGS: Good bilateral air exchange. ABDOMEN: Soft, nontender. EXTREMITIES: Cellulitis is improving. CENTRAL NERVOUS SYSTEM: Essentially unchanged. DIAGNOSTIC DATA: Available diagnostic data reviewed. Overall, the patient's general medical condition is stable. PLAN: As ordered. Jas Andino MD cc: [id number] TT: 07/10/2016 09:09:41 Confirmation # [id number] Dictation # [id number] in
--- NOTE | 2016-07-11 11:58 | PN ---
DATE: 07/11/2016 The patient seen and examined. Interim events noted. The patient remains in transitional care unit. Infectious disease followup and intervention noted and appreciated. The patient feels better. No chest pain, no shortness of breath. Leg pain is adequately controlled. The patient is doing his ADL s without any problem. PHYSICAL EXAMINATION: GENERAL: The patient is in no acute distress. VITAL SIGNS: Stable. Physical exam is essentially unchanged. DIAGNOSTIC DATA: Available diagnostic data reviewed. Overall, patient's general medical condition is stable. PLAN: As ordered. Jas Andino MD cc: [id number] TT: 07/11/2016 11:57:22 Confirmation # [id number] Dictation # [id number] mn
[2016-07-12] MEDS: Levothyroxine 125 MCG TAB PO SCH (06:06)
[2016-07-12] MEDS: Ammonium Lactate 12% Cream (140 g) TOP SCH ×2 (08:38→17:29)
[2016-07-12] MEDS: Multivitamin With Minerals Tab PO SCH (08:39)
[2016-07-12] MEDS: hydroCHLOROthiazide-Triamterene 25 mg-37.5 mg Cap UD PO SCH (08:39)
--- NOTE | 2016-07-12 08:55 | PN ---
DATE: 07/12/2016 The patient is seen and examined. Interim events noted. The patient remains in transitional care un it on IV antibiotic. The patient feels okay. No specific medical complaint. No specific issues rep orted by nursing staff. PHYSICAL EXAMINATION: GENERAL: The patient is in no acute distress. VITAL SIGNS: Stable. HEART: S1, S2 normal, regular. LUNGS: Good bilateral air exchange. ABDOMEN: Soft, nontender. EXTREMITIES: Cellulitis is slowly improving. DIAGNOSTIC DATA: Available diagnostic data reviewed. Overall, the patient's general medical condition is stable. PLAN: As ordered. Jas Andino MD cc: [id number] TT: 07/12/2016 08:54:39 Confirmation # [id number] Dictation # [id number] aprana
[2016-07-13] MEDS: Levothyroxine 125 MCG TAB PO SCH (06:45)
[2016-07-13] MEDS: hydroCHLOROthiazide-Triamterene 25 mg-37.5 mg Cap UD PO SCH (08:42)
[2016-07-13] MEDS: Ammonium Lactate 12% Cream (140 g) TOP SCH ×2 (08:42→16:56)
[2016-07-13] MEDS: Multivitamin With Minerals Tab PO SCH (08:43)
[2016-07-14] MEDS: Levothyroxine 125 MCG TAB PO SCH (06:25)
--- NOTE | 2016-07-14 08:16 | PN ---
DATE: 07/14/2016 The patient seen and examined. Interim events noted. The patient remains in transitional care unit. The patient feels okay. No specific complaint of chest pain, no shortness of breath. Leg pain is adequately controlled. PHYSICAL EXAMINATION: GENERAL: The patient is in no acute distress. VITAL SIGNS: Stable. HEART: S1, S2 normal, regular. LUNGS: Good bilateral air exchange. ABDOMEN: Soft, nontender. EXTREMITIES: Left lower extremity still red, but no open areas or pus, discharge. Cellulitic area i s slowly decreasing. No sign of acute distal neurological compromise. ____essentially unchanged. DIAGNOSTIC DATA: Available diagnostic data reviewed. Overall, patient's general medical condition is ____ . PLAN: As ordered. Jas Andino MD cc: [id number] TT: 07/14/2016 08:15:43 Confirmation # [id number] Dictation # [id number] aparna
[2016-07-14] MEDS: Ammonium Lactate 12% Cream (140 g) TOP SCH ×2 (09:17→17:20)
[2016-07-14] MEDS: Multivitamin With Minerals Tab PO SCH (09:18)
[2016-07-14] MEDS: hydroCHLOROthiazide-Triamterene 25 mg-37.5 mg Cap UD PO SCH (09:18)
[2016-07-15] MEDS: Levothyroxine 125 MCG TAB PO SCH (06:18)
[2016-07-15] MEDS: Ammonium Lactate 12% Cream (140 g) TOP SCH ×2 (08:53→17:37)
[2016-07-15] MEDS: hydroCHLOROthiazide-Triamterene 25 mg-37.5 mg Cap UD PO SCH (08:53)
[2016-07-15] MEDS: Multivitamin With Minerals Tab PO SCH (08:53)
--- NOTE | 2016-07-15 09:57 | CP.PCM.PN ---
Subjective - Date & Time of Evaluation Date of Evaluation: 07/15/16 Time of Evaluation: 09:50 - Subjective Subjective: s- PT STILL IN severe l HIP PAIN at time of encounter/ Objective - Vital Signs/Intake and Output Vital Signs (last 24 hours): Temp Pulse Resp BP Pulse Ox 97.8 F 60 20 124/60 99 07/15/16 07:58 07/15/16 08:53 07/15/16 07:58 07/15/16 08:53 07/15/16 07:58 - Medications Medications: Current Medications Acetaminophen (Tylenol 325mg Tab) 650 mg PO Q6 PRN PRN Reason: Pain, Mild (1-3) Cholecalciferol (Vitamin D) 1,000 iu PO DAILY [facility] Last Admin: 07/15/16 08:53 Dose: 1,000 iu Diphenhydramine HCl (Benadryl) 50 mg PO Q6 PRN PRN Reason: Itching / Pruritus Last Admin: 06/28/16 21:06 Dose: 50 mg Ferrous Sulfate (Feosol) 325 mg PO DAILY [facility] Last Admin: 07/15/16 08:53 Dose: 325 mg Vancomycin HCl 750 mg/ Sodium (Chloride) 250 mls @ 166.667 mls/hr IVPB Q12@0500 ,1700 [facility] Last Admin: 07/15/16 05:14 Dose: 166.667 mls/hr Ertapenem 1 gm/ Sodium (Chloride) 100 mls @ 100 mls/hr IVPB DAILY [facility] Lactic Acid (Lac-Hydrin 12% Cream (140 G)) 1 ea TOP BID [facility] Last Admin: 07/15/16 08:53 Dose: 1 applic Levothyroxine Sodium (Synthroid) 125 mcg PO DAILY@0630 [facility] Last Admin: 07/15/16 06:18 Dose: 125 mcg Metoprolol Tartrate (Lopressor) 50 mg PO Q12 [facility] Last Admin: 07/15/16 08:53 Dose: 50 mg Multivitamins/Minerals (Therapeutic-M Tab) 1 tab PO DAILY [facility] Last Admin: 07/15/16 08:53 Dose: 1 tab Triamterene/HCTZ (Dyazide 25 Mg-37.5 Mg) 1 cap PO DAILY [facility] Last Admin: 07/15/16 08:53 Dose: 1 cap - Labs Labs: 07/02/16 05:30 07/05/16 06:48 - Additional Findings Additional findings: Objective exam systemic git/stance- stands erect pelvis NOT LEVEL pt with leg length inequality R < L approx 3/4" L lower extremity cellulitis MARKEDLY improved; a portion of the erythema this pt evidences is NOT SEPTIC, probably reflects vascular insufficiency+ + +bushra sign/ + Inderjit test ROM restricted flex/int rotation ROM retsricted ext internal rotation Assessment and Plan - Assessment and Plan (Free Text) Plan: A- Severe O/A L hip /P- THR recommended/ pt has been mainatined on 3 wks IV abios/ case discussed with Dr Mahajan (ID) and with DR CHACON; both agree the lower ext , secondary to vascular involveemnt will NOT be any better than it is right now The pros cons risks and benefits of the surgicaL APPROACH ARE DISCUSSED AT [facility] WITH THE PT pT ARTICULATES HE WISHES THE SURGERY DONE /
--- NOTE | 2016-07-15 09:58 | PN ---
DATE: 07/15/2016 The patient is seen and examined. Interim events noted. The patient remains in transitional care un . The patient feels okay. No specific complaint, no chest pain, no shortness of breath. PHYSICAL EXAMINATION: GENERAL: The patient is in no acute distress. VITAL SIGNS: Stable. HEART: S1, S2 normal, regular. LUNGS: Good bilateral air entry. ABDOMEN: Soft, nontender. EXTREMITIES: No calf swelling, no tenderness, no acute ischemia. Cellulitis is improving. CENTRAL NERVOUS SYSTEM: Essentially unchanged. DIAGNOSTIC DATA: Available diagnostic data reviewed. Overall, the patient's general medical condition is stable and improving. PLAN: As ordered. Jas Andino MD cc: [id number] TT: 07/15/2016 09:58:00 Confirmation # [id number] Dictation # [id number] jn
--- NOTE | 2016-07-15 10:49 | RAD ---
PROCEDURE: Left hip with pelvis HISTORY: Osteoarthritis left hip, left hip pain. COMPARISON: 07/02/2016 TECHNIQUE: Frontal view of the pelvis and frontal and frogleg views of the left hip were performed. FINDINGS: There is once again evidence of moderately severe degenerative joint disease of the left hip with moderate subchondral cyst formation on both sides of the left hip joint. Chronic deformity of the left hip is noted. No fracture is clearly seen. Hypertrophic degenerative spurring is noted adjacent to the acetabular regions. Right hip replacement is stable in appearance and position. Pubic rami and symphysis are unremarkable. No sacroiliac joint widening is seen. Stable degenerative changes are seen in the lower lumbar spine. Proximal left femoral shaft is intact. IMPRESSION: Moderately severe left hip joint DJD. No evidence of fracture.
--- NOTE | 2016-07-15 18:43 | CP.PCM.PN ---
Subjective - Date & Time of Evaluation Date of Evaluation: 07/15/16 Time of Evaluation: 18:36 - Subjective Subjective: ID NOTE AFEBRILE DISCUSSED c AND HE HAS RECEIVED ALMOST 4 WEEKS IV ANTIBIOTIC THERAPY AND SHOULD BE READY FOR THR WILL CONTINUE TO FOLLOW AND MONITOR VANCOMYCIN TROUGH IS 8.3(NO CHANGE IN DOSING) Objective - Vital Signs/Intake and Output Vital Signs (last 24 hours): Temp Pulse Resp BP Pulse Ox 98.1 F 70 20 121/86 97 07/15/16 16:55 07/15/16 16:55 07/15/16 16:55 07/15/16 16:55 07/15/16 16:55 - Medications Medications: Current Medications Acetaminophen (Tylenol 325mg Tab) 650 mg PO Q6 PRN PRN Reason: Pain, Mild (1-3) Cholecalciferol (Vitamin D) 1,000 iu PO DAILY [facility] Last Admin: 07/15/16 08:53 Dose: 1,000 iu Diphenhydramine HCl (Benadryl) 50 mg PO Q6 PRN PRN Reason: Itching / Pruritus Last Admin: 06/28/16 21:06 Dose: 50 mg Ferrous Sulfate (Feosol) 325 mg PO DAILY [facility] Last Admin: 07/15/16 08:53 Dose: 325 mg Vancomycin HCl 750 mg/ Sodium (Chloride) 250 mls @ 166.667 mls/hr IVPB Q12@0500 ,1700 [facility] Last Admin: 07/15/16 17:37 Dose: 166.667 mls/hr Ertapenem 1 gm/ Sodium (Chloride) 100 mls @ 100 mls/hr IVPB DAILY [facility] Lactic Acid (Lac-Hydrin 12% Cream (140 G)) 1 ea TOP BID [facility] Last Admin: 07/15/16 17:37 Dose: 1 applic Levothyroxine Sodium (Synthroid) 125 mcg PO DAILY@0630 [facility] Last Admin: 07/15/16 06:18 Dose: 125 mcg Metoprolol Tartrate (Lopressor) 50 mg PO Q12 [facility] Last Admin: 07/15/16 08:53 Dose: 50 mg Multivitamins/Minerals (Therapeutic-M Tab) 1 tab PO DAILY [facility] Last Admin: 07/15/16 08:53 Dose: 1 tab Triamterene/HCTZ (Dyazide 25 Mg-37.5 Mg) 1 cap PO DAILY [facility] Last Admin: 07/15/16 08:53 Dose: 1 cap - Labs Labs: 07/02/16 05:30 07/05/16 06:48
[2016-07-16] MEDS: Levothyroxine 125 MCG TAB PO SCH (06:49)
[2016-07-16 08:15] LABS: ALB/GLOB RATIO 1.3 (1.0-2.1); ALKALINE PHOSPHATASE 74 U/L (38-126); ALT/SGPT 38 U/L (21-72); AST/SGOT 27 U/L (17-59); BILIRUBIN,TOTAL 0.6 mg/dl (0.2-1.3); BLOOD UREA NITROGEN 13 mg/dl (9-20); CALCIUM 9.1 mg/dL (8.4-10.2); CARBON DIOXIDE 27 mmol/L (22-30); CHLORIDE 103 mmol/L (98-107); GFR AFRICAN-AMERICAN > 60; GLUCOSE,RANDOM 79 mg/dL (75-110); POTASSIUM 4.1 MMOL/L (3.6-5.0); SODIUM 146 mmol/l (132-148); TOTAL PROTEIN 7.7 G/DL (6.3-8.2)
[2016-07-16] MEDS: hydroCHLOROthiazide-Triamterene 25 mg-37.5 mg Cap UD PO SCH (08:41)
[2016-07-16] MEDS: Ammonium Lactate 12% Cream (140 g) TOP SCH ×2 (08:42→17:36)
[2016-07-16] MEDS: Multivitamin With Minerals Tab PO SCH (08:42)
--- NOTE | 2016-07-16 10:42 | PN ---
DATE: 07/16/2016 The patient seen and examined. Interim events noted. Consults noted, appreciated. Infectious disea se followup and intervention noted and appreciated. Case was discussed with orthopedic yesterday. T he patient feels better. Leg pain improved. No chest pain or shortness of breath. PHYSICAL EXAMINATION: GENERAL: The patient is in no acute distress. VITAL SIGNS: Stable. HEART: S1, S2 normal, regular. LUNGS: Good bilateral air exchange. ABDOMEN: Soft, nontender. EXTREMITIES: No calf swelling, no tenderness, no acute ischemia. Cellulitis is remarkably improving . DIAGNOSTIC DATA: Available reviewed. Overall, patient's general medical condition is stable and improving. The patient is for possible hi p replacement. PLAN: As ordered. Case and plan discussed with patient. Jas Andino MD cc: [id number] TT: 07/16/2016 10:41:30 Confirmation # [id number] Dictation # [id number] en
[2016-07-17] MEDS: Levothyroxine 125 MCG TAB PO SCH (06:23)
[2016-07-17] MEDS: Multivitamin With Minerals Tab PO SCH (08:51)
[2016-07-17] MEDS: hydroCHLOROthiazide-Triamterene 25 mg-37.5 mg Cap UD PO SCH (08:51)
[2016-07-17] MEDS: Ammonium Lactate 12% Cream (140 g) TOP SCH ×2 (08:52→16:36)
--- NOTE | 2016-07-17 11:22 | PN ---
DATE: 07/17/2016 The patient seen and examined. Interim events noted. Consults noted and appreciated. The patient r emains in transitional care unit. The patient feels okay. No new complaint, no chest pain or shortn ess of breath. PHYSICAL EXAMINATION: GENERAL: The patient is in no acute distress. VITAL SIGNS: Stable. HEART: S1, S2 normal, regular. LUNGS: Good bilateral air exchange. ABDOMEN: Soft, nontender. EXTREMITIES: No edema, no calf swelling, no tenderness, no acute ischemia. Cellulitis is remarkably improving. CENTRAL NERVOUS SYSTEM: Essentially unchanged. DIAGNOSTIC DATA: Available diagnostic data reviewed. Overall, patient's general medical condition is slowly improving. PLAN: As ordered. Jas Andino MD cc: [id number] TT: 07/17/2016 11:21:36 Confirmation # [id number] Dictation # [id number] doe
[2016-07-18] MEDS: Levothyroxine 125 MCG TAB PO SCH (05:38)
[2016-07-18] MEDS: hydroCHLOROthiazide-Triamterene 25 mg-37.5 mg Cap UD PO SCH (08:41)
[2016-07-18] MEDS: Multivitamin With Minerals Tab PO SCH (08:42)
[2016-07-18] MEDS: Ammonium Lactate 12% Cream (140 g) TOP SCH ×2 (08:43→17:26)
--- NOTE | 2016-07-18 09:18 | PN ---
DATE: 07/18/2016 The patient seen and examined. Interim events noted. The patient remains in transitional care unit on IV antibiotic. The patient feels okay. No new complaint, no chest pain, no shortness of breath. Arthritic pains are adequately controlled. PHYSICAL EXAMINATION: GENERAL: The patient is in no acute distress. VITAL SIGNS: Stable. HEART: S1, S2 normal, regular. LUNGS: Good bilateral air exchange. ABDOMEN: Soft, nontender. EXTREMITIES: Cellulitis is remarkably improved. No sign of acute distal neurovascular compromise. No edema, no calf swelling, no tenderness. Advanced varicose veins present. CENTRAL NERVOUS SYSTEM: Essentially unchanged. DIAGNOSTIC DATA: Available reviewed. Overall, patient's general medical condition is stable and improving. PLAN: As ordered. Jas Andino MD cc: [id number] TT: 07/18/2016 09:17:29 Confirmation # [id number] Dictation # [id number] en
[2016-07-18 14:01] LABS: HEMATOCRIT 39.4 % (35.0-51.0); MEAN CELL VOLUME 98.5 fl (80.0-94.0); MEAN CORPUSCULAR HEMOGLOBIN 33.1 pg (27.0-31.0); MEAN CORPUSCULAR HGB CONC 33.6 g/dL (33.0-37.0); RED CELL DISTRIBUTION WIDTH 12.8 % (11.5-14.5); WHITE BLOOD COUNT 6.1 K/uL (4.8-10.8)
[2016-07-18 14:09] LABS: ALB/GLOB RATIO 1.2 (1.0-2.1); ALKALINE PHOSPHATASE 74 U/L (38-126); ALT/SGPT 46 U/L (21-72); AST/SGOT 28 U/L (17-59); BILIRUBIN,TOTAL 0.5 mg/dl (0.2-1.3); BLOOD UREA NITROGEN 13 mg/dl (9-20); CALCIUM 9.5 mg/dL (8.4-10.2); CARBON DIOXIDE 27 mmol/L (22-30); CHLORIDE 100 mmol/L (98-107); GFR AFRICAN-AMERICAN > 60; GLUCOSE,RANDOM 97 mg/dL (75-110); POTASSIUM 4.3 MMOL/L (3.6-5.0); SODIUM 139 mmol/l (132-148); TOTAL PROTEIN 8.1 G/DL (6.3-8.2)
[2016-07-18 17:05] VITALS: PULSE 69
[2016-07-18 20:26] VITALS: BP 121/67
[2016-07-18 20:53] VITALS: TEMP 97.3; O2SAT 97
== END 2016-07-19 06:18 | disposition short-term general hospital (02) | DRG 603 ==
LOC: H.TCU 15:35
PROVIDERS: ADMIT Internal Medicine; ATTEND Internal Medicine
PROC: F08Z4ZZ Home Management Treatment (ICD-10-PCS; principal; 2016-06-28)
PROC: F07L0ZZ Range of Motion and Joint Mobility Treatment of Musculoskeletal System - Lower Back / Lower Extremity (ICD-10-PCS; 2016-06-28)
PROC: 3E0234Z Introduction of Serum, Toxoid and Vaccine into Muscle, Percutaneous Approach (ICD-10-PCS; 2016-07-05)
DX: L03.116 Cellulitis of left lower limb (principal); I87.2 Venous insufficiency (chronic) (peripheral); F10.21 Alcohol dependence, in remission; Z23 Encounter for immunization; F19.21 Other psychoactive substance dependence, in remission; G89.29 Other chronic pain; Z96.641 Presence of right artificial hip joint; Z96.652 Presence of left artificial knee joint; M16.12 Unilateral primary osteoarthritis, left hip

== ENCOUNTER 2016-07-19 06:09 | Inpatient (IN) | payer MEDICARE, MEDICAID ==
[2016-07-19 06:21] VITALS: BMI 31.2
[2016-07-19] MEDS ORDERED: Midazolam 2 MG/2 ML VIAL ONE ×2 (07:37→08:29)
[2016-07-19] MEDS ORDERED: Succinylcholine 200 mg/10 ml Inj IV ONE (07:37)
[2016-07-19] MEDS ORDERED: Propofol 10 mg/ml Inj (20 ML) ONE (07:37)
[2016-07-19] MEDS ORDERED: Neostigmine Methylsulfate 2 MG/2 ML ML IV ONE (07:37)
[2016-07-19] MEDS ORDERED: Lidocaine Hydrochloride 5 ML INJ ONE (07:38)
[2016-07-19] MEDS ORDERED: Rocuronium 10 mg/ml (5 ml) ONE ×2 (07:40→10:42)
[2016-07-19] MEDS ORDERED: Phenylephrine 10 mg/ml Inj ONE (07:40)
[2016-07-19] MEDS ORDERED: ePHEDrine 50 mg/ml Inj ONE (07:40)
[2016-07-19] MEDS ORDERED: Lidocaine 4% (Laryng-O-Jet) Kit MM ONE (07:44)
[2016-07-19] MEDS ORDERED: Bacitracin Ointment 30 GM TUBE ONE (07:48)
[2016-07-19] MEDS ORDERED: Morphine 1 mg/ml preservative-free Inj(Duramorph) ONE (08:06)
[2016-07-19] MEDS ORDERED: Lactated Ringer's 1,000 ML IV ONE (08:32)
[2016-07-19] MEDS ORDERED: Sodium Chloride 0.9% 200 ML IV ONE (09:15)
[2016-07-19] MEDS ORDERED: DiphenhydrAMINE 50 mg/ml Inj IVP PRN (13:16)
--- NOTE | 2016-07-19 13:19 | PCM.SURG1 ---
Surgeon's Initial Post Op Note - Surgeon's Notes Surgeon: [employer] Operator: 1st KATHY Mcgarry Type of Anesthesia: General Endo, General LMA, Spinal Anesthesia Administered By: DR Higgins Pre-Operative Diagnosis: severe hyperetrophic O/A L hip Operative Findings: as above. marked synovitis. contracture capsule and iliopsoas tendon Post-Operative Diagnosis: severe hypertrophic O /A L hip. synovitis L hip. contracture iliopsoas and capsule Operation Performed: L THR. femoral neck osteotomy. arthrotomy/saynovectomy/ release iloipsoas tendon and capsule. autograft bone graft Specimen/Specimens Removed: bone/synovium/caertilage Estimated Blood Loss: EBL {In ML}: 200 Blood Products Given: N/A Drains Used: No Drains Post-Op Condition: Good Date of Surgery/Procedure: 07/19/16 Time of Surgery/Procedure: 09:50 (time in room/anaesthesia induction time 8:30/ end 1300)
[2016-07-19] MEDS ORDERED: Albuterol HFA 90 mcg/actuation (8 g) IH PRN (13:32)
[2016-07-19] MEDS ORDERED: Oxycodone/Acetaminophen 5/325 mg Tab PO PRN (13:59)
--- NOTE | 2016-07-19 14:44 | RAD ---
PROCEDURE: Left Hip X-ray Radiographs. HISTORY: s/p L THR COMPARISON: None. FINDINGS: BONES: No acute fracture. JOINTS: Bilateral total hip replacement. Grossly normal alignment. No dislocation. SOFT TISSUES: Subcutaneous gas over lateral aspect left hip, consistent with recent surgery. OTHER FINDINGS: None. IMPRESSION: Bilateral total hip replacement.
--- NOTE | 2016-07-19 16:34 | CP.PCM.HP ---
<Marlena Huff - Last Filed: 07/19/16 16:36> History of Present Illness - History of Present Illness History of Present Illness: Pt is a 46 y/o male with history of hypothyroidism, multiple DVTs, right hip replacement admitted s/p left hip replacement surgery. Pt was in TCU completing IV antibiotics for cellulites of the lower extremity, ID cleared pt for surgery and procedure was done today. pt was seen and examined at bedside in PACU, did not have any complaints. and pain was controlled Present on Admission - Present on Admission Any Indicators Present on Admission: Yes History of DVT/PE: Yes Review of Systems - Review of Systems All systems: reviewed and no additional remarkable complaints except Review of Systems: per HPI Past Patient History - Infectious Disease Hx of Infectious Diseases: None - Past Medical History & Family History Past Medical History?: Yes - Past Social History Smoking Status: Former Smoker - CARDIAC Hx Hypertension: Yes - PULMONARY Hx Chronic Obstructive Pulmonary Disease (COPD): Yes - HEMATOLOGICAL/ONCOLOGICAL Hx Blood Disorders: Yes Hx Anemia: Yes Hx Hepatitis C: Yes Other/Comment: DVT - INTEGUMENTARY Hx Cellulitis: Yes - MUSCULOSKELETAL/RHEUMATOLOGICAL Hx Arthritis: Yes Hx Falls: No Hx Osteoarthritis: Yes - PSYCHIATRIC Hx Psychosis: Yes Hx Substance Use: Yes 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 - SURGICAL HISTORY Hx Surgeries: No Hx Joint Replacement: Yes (left total knee replacement, right total hip replacement) - ANESTHESIA Hx Anesthesia: Yes Hx Anesthesia Reactions: No Hx Malignant Hyperthermia: No Has any member of the family had a problem w/ anesthesia?: No Meds Allergies/Adverse Reactions: Allergies Allergy/AdvReac Type Severity Reaction Status Date / Time No Known Allergies Allergy Verified 07/19/16 06:21 Physical Exam - Constitutional Appears: Non-toxic, No Acute Distress - Head Exam Head Exam: NORMOCEPHALIC - Eye Exam Eye Exam: Normal appearance - ENT Exam ENT Exam: Mucous Membranes Moist - Respiratory Exam Respiratory Exam: Clear to Auscultation Bilateral, NORMAL BREATHING PATTERN. absent: Rhonchi, Wheezes - Cardiovascular Exam Cardiovascular Exam: REGULAR RHYTHM, +S1, +S2 - GI/Abdominal Exam GI & Abdominal Exam: Normal Bowel Sounds, Soft. absent: Tenderness - Extremities Exam Extremities exam: Negative for: calf tenderness, pedal edema Additional comments: left hip neatly dressed, no drains - Neurological Exam Neurological exam: Alert, CN II-XII Intact Results - Vital Signs Recent Vital Signs: Last Vital Signs Temp 97.6 F 07/19/16 15:57 Pulse 100 H 07/19/16 15:57 Resp 18 07/19/16 15:57 BP 117/71 07/19/16 15:57 Pulse Ox 99 07/19/16 15:57 Assessment & Plan - Assessment and Plan (Free Text) Assessment: pt is a 46 y/o male with history of hypothyroidism, multiple DVTs, previous right hip replacement, admitted for left HIP replacement POD#0 Plan: Left Hip replacement POD#0 pain management per anesthesia muscle relaxant ordered pt already on Xarelto for anticoagulation - ordered to resume in the AM Pt and OT ordered for eval in the AM Ancef 1gram q12 2. Hypothyroidism Resume home med 3. Lower extremity cellulites ID re-consulted if any further antibiotics is necessary 4. diet- liquid tonight, advance to regular in the am 5. DVT prophylaxis- on Xarelto, resume in the morning <Jas Andino - Last Filed: 07/20/16 12:45> Results - Vital Signs Recent Vital Signs: Last Vital Signs Temp 97.7 F 07/20/16 00:00 Pulse 100 H 07/20/16 10:32 Resp 16 07/20/16 00:00 BP 108/68 07/20/16 10:32 Pulse Ox 100 07/20/16 10:32 - Labs Result Diagrams: 07/20/16 11:26 07/20/16 11:26 Labs: Laboratory Results - last 24 hr 07/20/16 11:26 WBC 11.9 H D RBC 3.06 L Hgb 10.3 L D Hct 30.6 L MCV 100.1 H MCH 33.7 H MCHC 33.7 RDW 12.8 Plt Count 174 MPV 9.8 Neut % (Auto) 77.9 H Lymph % (Auto) 11.4 L [place] % (Auto) 10.4 H Eos % (Auto) 0.1 Baso % (Auto) 0.2 Neut # 9.3 H Lymph # 1.4 [place] # 1.2 H Eos # 0.0 Baso # 0.0 Sodium 141 Potassium 3.8 Chloride 100 Carbon Dioxide 25 Anion Gap 20 BUN 12 Creatinine 0.8 Est GFR ( Amer) > 60 Est GFR (Non-Af Amer) > 60 Random Glucose 120 H Calcium 8.7 Total Bilirubin 0.6 AST 61 H D ALT 39 Alkaline Phosphatase 51 Total Protein 6.3 Albumin 3.5 D Globulin 2.8 Albumin/Globulin Ratio 1.3 Assessment & Plan - Assessment and Plan (Free Text) Assessment: Patient was personally seen and examined by me in rounds with residents. Available labs and diagnostic data reviewed. Case, Patient's condition and management plan discussed with residents in rounds. Agree with resident's documentation. Plan: As ordered. Jas Andino MD
--- NOTE | 2016-07-19 18:40 | CP.PCM.PN ---
Subjective - Date & Time of Evaluation Date of Evaluation: 07/19/16 Time of Evaluation: 18:41 - Subjective Subjective: ID NOTE PATIENT HAD THR TODAY WOULD CONTINUE VANCOMYCIN/ERTAPENEM Objective - Vital Signs/Intake and Output Vital Signs (last 24 hours): Temp Pulse Resp BP Pulse Ox 97.6 F 100 H 18 117/71 99 07/19/16 15:57 07/19/16 15:57 07/19/16 15:57 07/19/16 15:57 07/19/16 15:57 Intake and Output: 07/19/16 07/19/16 06:59 18:59 Intake Total 400 Balance 400 - Medications Medications: Current Medications Albuterol (Ventolin Hfa 90 Mcg/Actuation (8 G)) 2 puff IH Q6H PRN PRN Reason: Shortness of Breath Cholecalciferol (Vitamin D) 1,000 iu PO DAILY [facility] Cyclobenzaprine HCl (Flexeril) 10 mg PO TID PRN PRN Reason: Muscle spasm Diphenhydramine HCl (Benadryl) 50 mg IVP Q6 PRN PRN Reason: Itching / Pruritus Ferrous Sulfate (Feosol) 325 mg PO DAILY [facility] Home Med (Umeclidinium Brm/Vilanterol Tr [Anoro Ellipta 62.5-25 Mcg Inh]) 1 puff IH DAILY [facility] Vancomycin HCl 750 mg/ Sodium (Chloride) 100 mls @ 100 mls/hr IVPB Q12 [facility] Ertapenem 1 gm/ Sodium (Chloride) 100 mls @ 100 mls/hr IVPB DAILY [facility] Lactic Acid (Lac-Hydrin 12% Cream (140 G)) 1 ea TOP BID [facility] Levothyroxine Sodium (Synthroid) 125 mcg PO DAILY@0630 [facility] Metoprolol Tartrate (Lopressor) 50 mg PO Q12 [facility] Multivitamins/Minerals (Therapeutic-M Tab) 1 tab PO DAILY [facility] Ondansetron HCl (Zofran Inj) 4 mg IVP Q6 PRN PRN Reason: Nausea/Vomiting Oxycodone/Acetaminophen (Percocet 5/325 Mg Tab) 1 tab PO Q4 PRN PRN Reason: Pain, moderate (4-7) Stop: 07/22/16 14:00 Oxycodone/Acetaminophen (Percocet 5/325 Mg Tab) 2 tab PO Q6 PRN PRN Reason: Pain, severe (8-10) Stop: 07/22/16 14:01 Rivaroxaban (Xarelto) 20 mg PO DAILY [facility] PRN Reason: Protocol Triamterene/HCTZ (Dyazide 25 Mg-37.5 Mg) 1 cap PO DAILY [facility]
[2016-07-19] MEDS: Ammonium Lactate 12% Cream (140 g) TOP SCH (18:58)
[2016-07-19] MEDS ORDERED: ceFAZolin 1 GM in Sodium Chloride 0.9% 100 ML IVPB SCH (21:00)
[2016-07-20] MEDS: Levothyroxine 125 MCG TAB PO SCH (06:03)
[2016-07-20] MEDS ORDERED: Patient's Own Med (Umeclidinium Brm/Vilanterol Tr [Anoro Ellipta 62.5-25 Mcg Inh] 1 PUFF) IH SCH (09:00)
[2016-07-20] MEDS: Oxycodone/Acetaminophen 5/325 mg Tab PO PRN ×2 (09:02→20:58)
[2016-07-20] MEDS ORDERED: Sodium Chloride 0.9% 1,000 ML IV SCH ×2 (09:45→10:00)
[2016-07-20] MEDS ORDERED: Sodium Chloride 0.9% 500 ML IV ONE (09:49)
[2016-07-20] MEDS: hydroCHLOROthiazide-Triamterene 25 mg-37.5 mg Cap UD PO SCH (09:51)
[2016-07-20] MEDS: Multivitamin With Minerals Tab PO SCH (09:52)
[2016-07-20] MEDS: Ammonium Lactate 12% Cream (140 g) TOP SCH ×2 (09:58→16:39)
[2016-07-20 11:42] LABS: ALKALINE PHOSPHATASE 51 U/L (38-126); ALT/SGPT 39 U/L (21-72); AST/SGOT 61 U/L (17-59); BILIRUBIN,TOTAL 0.6 mg/dl (0.2-1.3); BLOOD UREA NITROGEN 12 mg/dl (9-20); CALCIUM 8.7 mg/dL (8.4-10.2); CARBON DIOXIDE 25 mmol/L (22-30); CHLORIDE 100 mmol/L (98-107); GFR AFRICAN-AMERICAN > 60; GLUCOSE,RANDOM 120 mg/dL (75-110); POTASSIUM 3.8 MMOL/L (3.6-5.0); SODIUM 141 mmol/l (132-148); TOTAL PROTEIN 6.3 G/DL (6.3-8.2)
[2016-07-20 11:43] LABS: ALB/GLOB RATIO 1.3 (1.0-2.1)
[2016-07-20 11:44] LABS: BASO % 0.2 % (0.0-2.0); EOS % 0.1 % (0.0-4.0); HEMATOCRIT 30.6 % (35.0-51.0); LYMPH # 1.4 K/uL (1.0-4.3); LYMPH % 11.4 % (20.0-40.0); MEAN CELL VOLUME 100.1 fl (80.0-94.0); MEAN CORPUSCULAR HEMOGLOBIN 33.7 pg (27.0-31.0); MEAN CORPUSCULAR HGB CONC 33.7 g/dL (33.0-37.0); MEAN PLATELET VOLUME 9.8 fl (7.2-11.7); MONO # 1.2 K/uL (0.0-0.8); MONO % 10.4 % (0.0-10.0); NEUT # 9.3 K/uL (1.8-7.0); NEUT % 77.9 % (50.0-75.0); RED CELL DISTRIBUTION WIDTH 12.8 % (11.5-14.5); WHITE BLOOD COUNT 11.9 K/uL (4.8-10.8)
--- NOTE | 2016-07-20 11:55 | CP.PCM.PN ---
<Marlena Huff - Last Filed: 07/20/16 11:57> Subjective - Date & Time of Evaluation Date of Evaluation: 07/20/16 Time of Evaluation: 08:10 - Subjective Subjective: pt seen and examined at bedside, awaiting physical therapy to help him move. states pain is currently controlled. had an episode of urinary retention that he need to be catheterized, wanted to know if that is going to be the case every time he has to urinate now. During physical therapy , when he was moved from bed to standing became hypotensive and started feeling dizzy, physical therapist sat him down but BP did not normalized, I gave fluid bolus and started on fluids, will also advance diet to hearty healthy as he has been on clear liquid since surgery yesterday afternoon. No other events. Objective - Vital Signs/Intake and Output Vital Signs (last 24 hours): Temp Pulse Resp BP Pulse Ox 97.7 F 100 H 16 108/68 100 07/20/16 00:00 07/20/16 10:32 07/20/16 00:00 07/20/16 10:32 07/20/16 10:32 - Medications Medications: Current Medications Albuterol (Ventolin Hfa 90 Mcg/Actuation (8 G)) 2 puff IH Q6H PRN PRN Reason: Shortness of Breath Cholecalciferol (Vitamin D) 1,000 iu PO DAILY [facility] Last Admin: 07/20/16 09:59 Dose: 1,000 iu Cyclobenzaprine HCl (Flexeril) 10 mg PO TID PRN PRN Reason: Muscle spasm Last Admin: 07/20/16 09:57 Dose: 10 mg Diphenhydramine HCl (Benadryl) 50 mg IVP Q6 PRN PRN Reason: Itching / Pruritus Ferrous Sulfate (Feosol) 325 mg PO DAILY [facility] Last Admin: 07/20/16 09:52 Dose: 325 mg Home Med (Umeclidinium Brm/Vilanterol Tr [Anoro Ellipta 62.5-25 Mcg Inh]) 1 puff IH DAILY [facility] Ertapenem 1 gm/ Sodium (Chloride) 100 mls @ 100 mls/hr IVPB DAILY [facility] Last Admin: 07/20/16 09:56 Dose: 100 mls/hr Vancomycin HCl 750 mg/ Sodium (Chloride) 250 mls @ 166.667 mls/hr IVPB Q12@1000 ,2200 [facility] Last Admin: 07/20/16 11:26 Dose: 166.667 mls/hr Sodium Chloride (Sodium Chloride 0.9%) 1,000 mls @ 150 mls/hr IV .Q6H40M [facility] Lactic Acid (Lac-Hydrin 12% Cream (140 G)) 1 ea TOP BID [facility] Last Admin: 07/20/16 09:58 Dose: 1 applic Levothyroxine Sodium (Synthroid) 125 mcg PO DAILY@0630 [facility] Last Admin: 07/20/16 06:03 Dose: 125 mcg Metoprolol Tartrate (Lopressor) 50 mg PO Q12 [facility] Last Admin: 07/20/16 09:57 Dose: Not Given Multivitamins/Minerals (Therapeutic-M Tab) 1 tab PO DAILY [facility] Last Admin: 07/20/16 09:52 Dose: 1 tab Ondansetron HCl (Zofran Inj) 4 mg IVP Q6 PRN PRN Reason: Nausea/Vomiting Last Admin: 07/20/16 11:21 Dose: 4 mg Oxycodone/Acetaminophen (Percocet 5/325 Mg Tab) 1 tab PO Q4 PRN PRN Reason: Pain, moderate (4-7) Stop: 07/22/16 14:00 Oxycodone/Acetaminophen (Percocet 5/325 Mg Tab) 2 tab PO Q6 PRN PRN Reason: Pain, severe (8-10) Stop: 07/22/16 14:01 Last Admin: 07/20/16 09:02 Dose: 2 tab Pantoprazole Sodium (Protonix Ec Tab) 40 mg PO DAILY [facility] Rivaroxaban (Xarelto) 20 mg PO DAILY [facility] PRN Reason: Protocol Last Admin: 07/20/16 11:22 Dose: 20 mg Triamterene/HCTZ (Dyazide 25 Mg-37.5 Mg) 1 cap PO DAILY [facility] Last Admin: 07/20/16 09:51 Dose: Not Given - Labs Labs: 07/20/16 11:26 - Constitutional Appears: Non-toxic - Head Exam Head Exam: NORMOCEPHALIC - Eye Exam Eye Exam: Normal appearance - ENT Exam ENT Exam: Mucous Membranes Moist - Respiratory Exam Respiratory Exam: Clear to Ausculation Bilateral, NORMAL BREATHING PATTERN. absent: Rhonchi, Wheezes - Cardiovascular Exam Cardiovascular Exam: REGULAR RHYTHM, +S1, +S2 - GI/Abdominal Exam GI & Abdominal Exam: Soft, Normal Bowel Sounds. absent: Tenderness - Extremities Exam Additional comments: lower extremity cellulities has greatly improved, skin does not appear red , not swelling has almost completely resolved - Neurological Exam Neurological Exam: Alert, Awake, Oriented x3 Assessment and Plan - Assessment and Plan (Free Text) Assessment: pt is a 46 y/o male with history of hypothyroidism, multiple DVTs, previous right hip replacement, admitted for left HIP replacement POD#0 Plan: Left Hip replacement POD#1 pain management per anesthesia muscle relaxant ordered pt already on Xarelto for anticoagulation Pt and OT started Ancef 1gram q12 2. Urinary retension episode Pt does not have any history of BPH retention most likely due to spinal anesthesia received during surgery as it takes 24 hours to resolve if retention persist, will evaluate for treatment 3. hypotensive episode nurse advised to hold BP med this morning give bolus, then 150cc/hr fluid 1 bag monitor vitals, diet advanced from liquids to heart healthy 4 Hypothyroidism Resume home med 5. Lower extremity cellulites ID recommendations appreciated 6. diet-heart healthy 7. DVT prophylaxis- on Xarelto <Jas Andino K - Last Filed: 07/20/16 12:46> Objective - Vital Signs/Intake and Output Vital Signs (last 24 hours): Temp Pulse Resp BP Pulse Ox 97.7 F 100 H 16 108/68 100 07/20/16 00:00 07/20/16 10:32 07/20/16 00:00 07/20/16 10:32 07/20/16 10:32 - Medications Medications: Current Medications Albuterol (Ventolin Hfa 90 Mcg/Actuation (8 G)) 2 puff IH Q6H PRN PRN Reason: Shortness of Breath Cholecalciferol (Vitamin D) 1,000 iu PO DAILY [facility] Last Admin: 07/20/16 09:59 Dose: 1,000 iu Cyclobenzaprine HCl (Flexeril) 10 mg PO TID PRN PRN Reason: Muscle spasm Last Admin: 07/20/16 09:57 Dose: 10 mg Diphenhydramine HCl (Benadryl) 50 mg IVP Q6 PRN PRN Reason: Itching / Pruritus Ferrous Sulfate (Feosol) 325 mg PO DAILY [facility] Last Admin: 07/20/16 09:52 Dose: 325 mg Home Med (Umeclidinium Brm/Vilanterol Tr [Anoro Ellipta 62.5-25 Mcg Inh]) 1 puff IH DAILY [facility] Ertapenem 1 gm/ Sodium (Chloride) 100 mls @ 100 mls/hr IVPB DAILY [facility] Last Admin: 07/20/16 09:56 Dose: 100 mls/hr Vancomycin HCl 750 mg/ Sodium (Chloride) 250 mls @ 166.667 mls/hr IVPB Q12@1000 ,2200 [facility] Last Admin: 07/20/16 11:26 Dose: 166.667 mls/hr Sodium Chloride (Sodium Chloride 0.9%) 1,000 mls @ 150 mls/hr IV .Q6H40M [facility] Lactic Acid (Lac-Hydrin 12% Cream (140 G)) 1 ea TOP BID [facility] Last Admin: 07/20/16 09:58 Dose: 1 applic Levothyroxine Sodium (Synthroid) 125 mcg PO DAILY@0630 [facility] Last Admin: 07/20/16 06:03 Dose: 125 mcg Metoprolol Tartrate (Lopressor) 50 mg PO Q12 [facility] Last Admin: 07/20/16 09:57 Dose: Not Given Multivitamins/Minerals (Therapeutic-M Tab) 1 tab PO DAILY [facility] Last Admin: 07/20/16 09:52 Dose: 1 tab Ondansetron HCl (Zofran Inj) 4 mg IVP Q6 PRN PRN Reason: Nausea/Vomiting Last Admin: 07/20/16 11:21 Dose: 4 mg Oxycodone/Acetaminophen (Percocet 5/325 Mg Tab) 1 tab PO Q4 PRN PRN Reason: Pain, moderate (4-7) Stop: 07/22/16 14:00 Oxycodone/Acetaminophen (Percocet 5/325 Mg Tab) 2 tab PO Q6 PRN PRN Reason: Pain, severe (8-10) Stop: 07/22/16 14:01 Last Admin: 07/20/16 09:02 Dose: 2 tab Pantoprazole Sodium (Protonix Ec Tab) 40 mg PO DAILY [facility] Last Admin: 07/20/16 12:29 Dose: 40 mg Rivaroxaban (Xarelto) 20 mg PO DAILY [facility] PRN Reason: Protocol Last Admin: 07/20/16 11:22 Dose: 20 mg Triamterene/HCTZ (Dyazide 25 Mg-37.5 Mg) 1 cap PO DAILY [facility] Last Admin: 07/20/16 09:51 Dose: Not Given - Labs Labs: 07/20/16 11:26 07/20/16 11:26 Assessment and Plan - Assessment and Plan (Free Text) Assessment: Patient was personally seen and examined by me in rounds with residents. Available labs and diagnostic data reviewed. Case, Patient's condition and management plan discussed with residents in rounds. Agree with resident's documentation. Plan: As ordered. Jas Andino MD
[2016-07-20] MEDS: Pantoprazole 40 mg EC Tab PO SCH (12:29)
--- NOTE | 2016-07-20 16:54 | RAD ---
PROCEDURE: Up Fluoroscopy up to 1 hr. HISTORY: LEFT HIP COMPARISON: None TECHNIQUE: Standard protocol for this study/examination. FINDINGS: Total fluoroscopic time (continuous mode) utilized during the procedure: 11.6 seconds. Submitted images from the current procedure: 5.0 IMPRESSION: Less than 1 hr fluoroscopic time utilized during performance of the procedure.
[2016-07-20 18:12] VITALS: RESP 20
[2016-07-21] MEDS: Levothyroxine 125 MCG TAB PO SCH (06:23)
[2016-07-21 08:21] LABS: ALB/GLOB RATIO 1.1 (1.0-2.1); ALKALINE PHOSPHATASE 48 U/L (38-126); ALT/SGPT 34 U/L (21-72); AST/SGOT 48 U/L (17-59); BILIRUBIN,TOTAL 0.5 mg/dl (0.2-1.3); BLOOD UREA NITROGEN 10 mg/dl (9-20); CALCIUM 8.3 mg/dL (8.4-10.2); CARBON DIOXIDE 27 mmol/L (22-30); CHLORIDE 101 mmol/L (98-107); GFR AFRICAN-AMERICAN > 60; GLUCOSE,RANDOM 98 mg/dL (75-110); SODIUM 142 mmol/l (132-148); TOTAL PROTEIN 6.4 G/DL (6.3-8.2)
[2016-07-21 08:27] LABS: MEAN CELL VOLUME 99.9 fl (80.0-94.0); MEAN CORPUSCULAR HEMOGLOBIN 33.1 pg (27.0-31.0); MEAN CORPUSCULAR HGB CONC 33.1 g/dL (33.0-37.0); RED CELL DISTRIBUTION WIDTH 12.9 % (11.5-14.5)
--- NOTE | 2016-07-21 08:56 | PN ---
DATE: 07/21/2016 The patient seen and examined. Interim events noted. Consults noted and appreciated. The patient f eels better. Pain is adequately controlled. No chest pain or shortness of breath. The patient is u ncooperative. PHYSICAL EXAMINATION: GENERAL: The patient is in no acute distress. VITAL SIGNS: Stable. HEART: S1, S2 normal, regular. LUNGS: Good bilateral air exchange. ABDOMEN: Soft, nontender. EXTREMITIES: Surgical site is clean. Cellulitis is ____ . CENTRAL NERVOUS SYSTEM: Essentially unchanged. DIAGNOSTIC DATA: Available diagnostic data reviewed. IMPRESSION: Overall, the patient is clinically stable. PLAN: As ordered. Jas Andino MD cc: [id number] TT: 07/21/2016 08:56:16 Confirmation # [id number] Dictation # [id number] [place]
[2016-07-21] MEDS: hydroCHLOROthiazide-Triamterene 25 mg-37.5 mg Cap UD PO SCH (09:39)
[2016-07-21] MEDS: Ammonium Lactate 12% Cream (140 g) TOP SCH (09:39)
[2016-07-21] MEDS: Pantoprazole 40 mg EC Tab PO SCH (09:40)
[2016-07-21] MEDS: Multivitamin With Minerals Tab PO SCH (09:40)
[2016-07-21] MEDS: Oxycodone/Acetaminophen 5/325 mg Tab PO PRN (10:36)
--- NOTE | 2016-07-21 13:29 | CP.PCM.PN ---
Subjective - Date & Time of Evaluation Date of Evaluation: 07/21/16 Time of Evaluation: 01:25 - Subjective Subjective: S- pt with minimal post op discomfort Objective - Vital Signs/Intake and Output Vital Signs (last 24 hours): Temp Pulse Resp BP Pulse Ox 97.5 F L 97 H 20 99/62 L 97 07/21/16 08:45 07/21/16 09:39 07/21/16 08:45 07/21/16 09:39 07/21/16 08:45 - Medications Medications: Current Medications Albuterol (Ventolin Hfa 90 Mcg/Actuation (8 G)) 2 puff IH Q6H PRN PRN Reason: Shortness of Breath Cholecalciferol (Vitamin D) 1,000 iu PO DAILY [facility] Last Admin: 07/21/16 09:39 Dose: 1,000 iu Cyclobenzaprine HCl (Flexeril) 10 mg PO TID PRN PRN Reason: Muscle spasm Last Admin: 07/20/16 09:57 Dose: 10 mg Diphenhydramine HCl (Benadryl) 50 mg IVP Q6 PRN PRN Reason: Itching / Pruritus Ferrous Sulfate (Feosol) 325 mg PO DAILY [facility] Last Admin: 07/21/16 09:39 Dose: 325 mg Home Med (Umeclidinium Brm/Vilanterol Tr [Anoro Ellipta 62.5-25 Mcg Inh]) 1 puff IH DAILY [facility] Ertapenem 1 gm/ Sodium (Chloride) 100 mls @ 100 mls/hr IVPB DAILY [facility] Last Admin: 07/21/16 09:38 Dose: 100 mls/hr Vancomycin HCl 750 mg/ Sodium (Chloride) 250 mls @ 166.667 mls/hr IVPB Q12@1000 ,2200 [facility] Last Admin: 07/21/16 09:37 Dose: 166.667 mls/hr Sodium Chloride (Sodium Chloride 0.9%) 1,000 mls @ 150 mls/hr IV .Q6H40M [facility] Lactic Acid (Lac-Hydrin 12% Cream (140 G)) 1 ea TOP BID [facility] Last Admin: 07/21/16 09:39 Dose: 1 applic Levothyroxine Sodium (Synthroid) 125 mcg PO DAILY@0630 [facility] Last Admin: 07/21/16 06:23 Dose: 125 mcg Metoprolol Tartrate (Lopressor) 50 mg PO Q12 [facility] Last Admin: 07/21/16 09:39 Dose: 50 mg Multivitamins/Minerals (Therapeutic-M Tab) 1 tab PO DAILY [facility] Last Admin: 07/21/16 09:40 Dose: 1 tab Ondansetron HCl (Zofran Inj) 4 mg IVP Q6 PRN PRN Reason: Nausea/Vomiting Last Admin: 07/20/16 11:21 Dose: 4 mg Oxycodone/Acetaminophen (Percocet 5/325 Mg Tab) 1 tab PO Q4 PRN PRN Reason: Pain, moderate (4-7) Stop: 07/22/16 14:00 Oxycodone/Acetaminophen (Percocet 5/325 Mg Tab) 2 tab PO Q6 PRN PRN Reason: Pain, severe (8-10) Stop: 07/22/16 14:01 Last Admin: 07/21/16 10:36 Dose: 2 tab Pantoprazole Sodium (Protonix Ec Tab) 40 mg PO DAILY [facility] Last Admin: 07/21/16 09:40 Dose: 40 mg Rivaroxaban (Xarelto) 20 mg PO DAILY [facility] PRN Reason: Protocol Last Admin: 07/21/16 09:40 Dose: 20 mg Triamterene/HCTZ (Dyazide 25 Mg-37.5 Mg) 1 cap PO DAILY [facility] Last Admin: 07/21/16 09:39 Dose: 1 cap - Labs Labs: 07/21/16 06:30 07/21/16 06:30 - Skin Skin Exam: Normal Color - Additional Findings Additional findings: Objective systemic - wnl Musculoskekltal- stance/ gait- deferred L hip wound benign N/V intact no gross defcits orthopedically syable Assessment and Plan - Assessment and Plan (Free Text) Assessment: A- s/p L: THR P weigth bearing as maxx;eratwed orthopedically stable for d/c
--- NOTE | 2016-07-21 15:55 | OP ---
PROCEDURE DATE: 07/19/2016 PREOPERATIVE DIAGNOSIS: Severe osteoarthritis of the left hip with deformity of the femoral head and a severe leg length inequality of approximately 1 inch. POSTOPERATIVE DIAGNOSES: 1. Severe osteoarthritis of the left hip with deformity of the femoral head and a severe leg length inequality of approximately 1 inch. 2. Primary osteoarthritis of the left hip. 3. Deformity of the femoral neck. 4. Synovitis of the hip joint. 5. 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 PROCEDURES: 1. Left total hip replacement, anterior approach. 2. Femoral neck osteotomy. 3. Hip arthrotomy, synovectomy. 4. Release of iliopsoas tendon. 5. Autograft bone grafting to the acetabulum. SURGEON: Dr. Jones CEMENTER OIL WELL: Fidelina Murillo, Certified Registered Nursing [employer] Head ANESTHESIA: Spinal general anesthesia. ANESTHESIOLOGIST: Dr. Higgins COMPLICATIONS: None. BLOOD LOSS: Approximately 200 mL. DRAINS: None. FLUID REPLACEMENT: As per anesthesia. Please refer to the anesthesia note. OPERATIVE INDICATION: The patient is a gentleman who has had multiple joint replacements including r ight total hip replacement, left knee replacement. The patient had unsatisfactory results after the hip replacement. The patient has also had an ankle fusion and the patient has a marked leg length in equality of approximately 1 inch. The patient has severe arthritis of the left hip, can no longer st and the discomfort. The patient is a referral to me from Dr. Jas Andino. Pros, cons, risks and pao efits of hip replacement arthroplasty are discussed. The possibility of mechanical failure, infectio n, thromboembolic disease, secondary or tertiary surgery is discussed. The concept of possible nerve injury, dislocation, leg length inequality is discussed and particularly the leg length inequality b ecause it is explained to the patient we will try to correct the inequality, but cannot guarantee alicia e. OPERATIVE PROCEDURE: After having obtained informed consent in the above fashion, after having ident ified side, site and procedure in a critical pause/timeout, after the satisfactory induction of the a nesthetic, the patient identified as the patient, in the supine position with all bony prominences we ll padded, the left lower extremity was prepped and draped in the usual fashion for lower extremity s urgery. The AMIS traction positioner is employed. It should be noted that after sterilely prepping and draping the left lower extremity in the AMIS traction with the boot applied and padded, under the surgeon's direction, the fluoroscope is positioned. Video images are generated. Therapeutic decisi ons are made therefrom with respect to virtual intraoperative planning as compared to preoperative pl anning. OPERATIVE PROCEDURE: At a point approximately 1 fingerbreadth distal to the ASIS and 4-5 fingerbread ths distal to that, the skin incision is ____ superficial to the tensor fasciae femoris muscle. The skin incision is carried down through the skin and subcutaneous tissue. The fascia is grasped using the Allis clamp and the tensor fascia femoris muscle is removed from the investing fascia. This havi ng been accomplished, the Medacta Adson retractor, Morgan retractor was placed and at this point in time, the posterior margin of the rectus femoris is identified. The Medacta retractor is replaced e xposing the fascia. The fascia is identified and is carefully divided cell by cell to avoid injury t o the lateral femoral circumflex vessels, particularly the anterior branch of the lateral femoral cir cumflex vessels. These are grasped with the tonsil clamps and at that point, the vessels are control led using the Aquamantys. This having been accomplished, the vessels were carefully divided and cont rolled with suture ligature. The fat is removed from the capsule and a triangular capsulotomy is acc omplished. This is tagged with stay suture and this having been accomplished, the osteotomy is plann ed. Under the surgeon's direction, the fluoroscope is positioned, video images are generated and the osteotomy plane is accomplished. The osteotomy having been accomplished, the femoral neck osteotomy is accomplished using the oscillating saw. A napkin ring is removed to allow easier removal of the femoral head because there ____ closing acetabular osteophytes. This having been noted, the femoral head is removed from the acetabulum and the femoral neck osteotomy is completed. This having been ac complished, there is found to be marked contractures. There is a flexion contracture of the hip and the contracture is removed using the electrocautery. A portion of the pubofemoral ligament at this p oint in time is released as well. The acetabulum is exposed, the border osteophytes of the acetabulu m are removed using a curved osteotome. The femoral head is measured and sequential reaming is armin ed out to 54 mm beginning with 50. Reaming is accomplished in approximately 40 degrees of abduction and 20 degrees of anteversion. Reaming having been accomplished, the reamings are denuded of articul ar cartilage and at this point in time, the trial cup is implanted. The trial is found to be excelle nt at this point in time. The Medacta cup is placed and impacted at 40 degrees of abduction and 20 d egrees of anteversion. The cup is found to be well fixed. The position again is verified on image i ntensification views. Attention is now turned to the femur. The bone hook is used to assess the tig htness. There is marked contracture. It should be noted that autograft bone grafting to the acetabu lum had been accomplished prior to implantation and impaction of the acetabular component. A portion of the iliopsoas tendon at this point is released and anterior capsulectomy is accomplished. The ca psule is released, pubofemoral ligament, ischial femoral ligament and iliofemoral ligament. The femu r is found to be mobile and the femoral canal is found using the bur followed by the rasp, sequential broaching to a #3. The #3 broach plus a 3.5 28 mm head is employed with the 54 mm outer bearing. T he hip is reduced and found to be stable in all planes. The discrepancy with this choice of James Jones MD cc: [id number] TT: 07/19/2016 21:44:39 sn
[2016-07-21 16:04] VITALS: BP 112/70; PULSE 101; TEMP 98.4; O2SAT 94
--- NOTE | 2016-07-21 16:17 | OP ---
PROCEDURE DATE: 07/19/2016 PREOPERATIVE DIAGNOSES: Severe hypertrophic osteoarthritis of the left hip with left hip contracture . POSTOPERATIVE DIAGNOSES: 1. Severe hypertrophic osteoarthritis of the left hip. 2. Synovitis of the left hip. 3. Contracture of the iliopsoas and capsule. PROCEDURES: 1. Left total hip replacement arthroplasty, anterior approach. 2. Femoral neck osteotomy. 3. Arthrotomy, synovectomy. 4. Release of iliopsoas tendon and capsule. 5. Autograft bone grafting to the acetabulum. SURGEON: James Jones MD CLINICAL PHLEBOTOMIST: Fidelina Murillo, Certified Registered Nursing Hair Stylist. ANESTHESIA: General spinal anesthesia. Anesthesia administered by Dr. Higgins. SPECIMENS REMOVED: Bone, synovium and cartilage. BLOOD LOSS: Approximately 200 mL. BLOOD PRODUCTS GIVEN: None. DRAINS: No drains. POSTOPERATIVE CONDITION: Stable. DATE OF SURGERY: 07/19/2016. TIME OF SURGERY: Time in the room, 8:30 a.m., incision time 9:50. OPERATIVE INDICATION: The patient is a 46-year-old gentleman who is now status post unsuccessful lef t total knee replacement and right total hip replacement. The patient has a marked leg length inequa lity and also has a flexion contracture of the left knee of approximately 35 degrees, making the repl acement of the left hip very difficult. Pros, cons, risks and benefits of total hip replacement arth roplasty are discussed. The possibility of mechanical failure, infection, thromboembolic disease, se condary or tertiary surgery is discussed. The patient can no longer stand the discomfort and wishes the surgery to be accomplished. The patient had bilateral stasis dermatitis and peripheral vascular disease with cellulitis. The patient was treated with approximately 3-4 weeks of IV antibiotics and the case was discussed at length with Dr. Mahajan. The patient was cleared by Dr. Mahajan and Dr Marcelino Andino, after discussing the pros, cons, risks and benefits of surgical approach. The patient is sahra en to surgery, after having obtained informed consent. Again, the possibility of mechanical failure, infection, thromboembolic disease, recurrent or persistent leg length inequality is discussed. Afte r having obtained informed consent in the above fashion, after having identified side, site and proce dure and a critical pause/timeout, after the satisfactory induction of the anesthetic, the patient id entified, in the supine position with all bony prominences well padded, the patient is placed in the positioner for anterior approach Hueter procedure. OPERATIVE PROCEDURE: After having obtained informed consent, after having identified side, site, and procedure, and a critical pause/timeout, after the satisfactory induction of the anesthetic, the lef t lower extremity was placed in the traction device with the foot of the operating table broken. All bony prominences were well padded. The initial incision is described 3 fingerbreadths posterior to the ASIS and 1 fingerbreadth distally, extending 4-5 fingerbreadths distally. After having obtained informed consent, after having identified side, site, and procedure, and a critical pause/timeout, af ter sterilely prepping and draping under the surgeon's direction, the fluoroscope was positioned, vid eo images are generated, therapeutic decisions are made there from. The initial incision, after ster ilely prepping and draping, is carried down through the skin and subcutaneous tissue. The fascia on the tensor fascia femoris is divided, it is grasped using an Allis clamp and the tensor fascia femori s muscle is taken down from the fascia. The modified Weitlaner retractor is placed and the fascia in ferior to the rectus femoris muscle was transected. The fat pad is removed and the retractor is plac ed now in a horizontal plane exposing the reflected head of rectus femoris from the ASIS. This was c arefully released from medial and lateral. The fat pad was excised. The fat pad, at this point in t atif, having been resected, the fascia is divided carefully and the underlying lateral femoral circumf klever vessel and anterior branch of the lateral femoral circumflex vessels are released. They were con trolled with the Aquamantys. Hemostasis had been controlled with the Aquamantys. The vessels were d ivided, control with suture and ligature and at this point in time, a triangular capsulotomy is accom plished to the inferior aspect of the area of the lesser trochanter fingerbreadth above with traction placed in external rotation. This capsular flap was continued just superior to the vastus lateralis and elevated, tagged with a stay suture. This having been accomplished, the Charnley retractor was placed. The femoral neck osteotomy is accomplished to attempt to shorten the left lower extremity an d the osteotomy is planned intraarticularly. Because of the planning of the osteotomy preoperatively and intraarticularly, the femoral neck osteotomy is accomplished. Attention is now turned to the ac etabulum. It should be noted that there are marked contractures of the femur and the femoral neck os teotomy is difficult in that a napkin ring had to be accomplished to effectively accomplish the femor al neck osteotomy. Under the surgeon's direction, the fluoroscope was positioned and the position of the osteotomy was found to be acceptable. The napkin ring is removed. The femoral head is noted an d the head is bisected using an oscillating saw because of the enveloping osteophytes of the acetabul um. The head is removed. Arthrotomy and synovectomy of the hip joint are accomplished at this point . Sequential reaming is carried out at this point. The acetabulum was exposed. The C retractor is placed and a portion of the superior acetabular musculature is elevated. Great care is taken to avoi d injury to the femoral nerve. The labrum was removed anteriorly and posteriorly. Hemostasis contro lled with the Aquamantys. Reaming is carried out to 54 mm in approximately 40 degrees of abduction a nd 20 degrees of anteversion. Reaming is first carried out medially to deepen the socket and posteri corbin as well for the sclerotic bone. The bur is employed as well. At this point in time, reaming is accomplished and the cup was abducted approximately 40 degrees and anteverted 20 degrees. Reamings are denuded of articular cartilage. Further reaming is accomplished. The cup is impacted at approxi mately 40 degrees of abduction, 20 degrees of anteversion. The cup was impacted after autograft bone grafting had been accomplished to the acetabulum. Autograft bone grafting to the acetabulum having been accomplished, the cup is impacted at 40 degrees of abduction, 20 degrees of anteversion. This h aving been accomplished, the Albert was employed to toggle the cup. The cup was found to be stable. Attention is turned to the femur. Again, there are marked contractures. The pubofemoral ligament i s released. The iliofemoral ligament, ischial femoral ligament are released. The femur is found to be mobile at this point in time. The short external rotators are released and the canal was found us ing the bur. At this point in time, the rasp was introduced. Sequential rasping is carried out to a #3 Medacta component. The 54 mm acetabular shell was impacted after autograft bone grafting to the acetabulum. The appropriate size broach is inserted with the +3.5 and the outer bearing 54 mm. The hip is reduced and found to be stable in all planes. The appropriate Medacta femoral component is im pacted in neutral attitude, again with a +3.5 and a 54 mm outer bearing. It should be noted that a po rtion of the iliopsoas tendon is released. The capsule was released and the pubofemoral ligament, il iofemoral ligament, ischial femoral ligaments were released to mobilize the femur. Hemostasis contro lled with the Aquamantys. The hip is found to be stable. The wound is thoroughly irrigated. The ca psular flap is repaired and closure of the fascia is with 0 Quill, followed by 0 Quill, Vicryl, stapl es for skin. No Hemovac is employed, hemostasis having been controlled with the Aquamantys. OPERATIVE PROCEDURES: 1. Left total hip replacement. 2. Femoral neck osteotomy, very difficult because of the patient's flexion contracture, napkin ring technique employed. 3. Arthrotomy, synovectomy. 4. Release of iliopsoas tendon. 5. Autograft bone graft of the acetabulum. Compression dressing is applied. Verification of position of the cup and the components are on image intensification views. James Jones MD cc: [id number] TT: 07/21/2016 16:16:47 gurdeep
== END 2016-07-21 16:26 | DRG 470 ==
LOC: H.OPSURG 06:09 → H.MEDSURG1 13:20
PROVIDERS: ADMIT Internal Medicine; ATTEND Internal Medicine
PROC: 0SRB0J9 Replacement of Left Hip Joint with Synthetic Substitute, Cemented, Open Approach (ICD-10-PCS; principal; 2016-07-19 07:45)
DX: M16.12 Unilateral primary osteoarthritis, left hip (principal); M65.852 Other synovitis and tenosynovitis, left thigh; M24.552 Contracture, left hip; E03.9 Hypothyroidism, unspecified; R33.8 Other retention of urine; I95.81 Postprocedural hypotension; Z96.641 Presence of right artificial hip joint; Z96.652 Presence of left artificial knee joint; Z86.718 Personal history of other venous thrombosis and embolism; Z87.891 Personal history of nicotine dependence

== ENCOUNTER 2017-02-11 14:29 | Emergency (ER) | payer MEDICARE, MEDICAID ==
[2017-02-11 14:30] VITALS: BMI 31.2
[2017-02-11 14:37] VITALS: PULSE 84; RESP 18; TEMP 97.6
--- NOTE | 2017-02-11 15:36 | ED PDOC ---
Lower Extremity Pain/Injury Time Seen by Provider: 02/11/17 14:44 Chief Complaint (Nursing): Abnormal Skin Integrity Chief Complaint (Provider): Right ankle infection History Per: Patient History/Exam Limitations: no limitations Onset/Duration Of Symptoms: Persistent Current Symptoms Are (Timing): Still Present Additional Complaint(s): Timothy is a 47 y/o male with a past medical history of hypothyroidism and hypertension, who was sent to the ED by PMD for evaluation of a persistent right ankle infection. Complaining of infection/swelling to the right ankle which have been ongoing for months. Also reports he has an area of left lower leg cellulitis, now healing. Patient has been treated with antibiotic ointments and PO Augmentin for 20 days without improvement. Also takes Xarelto due to an unspecified clotting problem identified during past operations (including surgery to knees, ankles, and hips). Patient is known to Dr. Jones and has been seen by planer operator regarding chronic wounds. Of note, patient states he prefers to have a PICC line and administer IV antibiotics if necessary, vs. admission. PMD: Jas Andino Past Medical History Reviewed: Historical Data, Nursing Documentation, Vital Signs Vital Signs: Last Vital Signs Temp 97.6 F 02/11/17 14:34 Pulse 84 02/11/17 14:34 Resp 18 02/11/17 14:34 BP 153/81 H 02/11/17 14:34 Pulse Ox 95 02/11/17 14:34 - Medical History PMH: Anemia, Arthritis, COPD, HTN, Hypothyroidism - Surgical History Other surgeries: Orthopedic surgeries - Family History Family History: States: Unknown Family Hx - Social History Current smoker - smoking cessation education provided: Yes Alcohol: Social - Home Medications Home Medications: Ambulatory Orders Medication Instructions Recorded Triamterene/Hydrochlorothiazid 1 tab PO DAILY 06/21/16 [Triamterene-Hctz 37.5-25 mg Tb] Acetaminophen [Tylenol 325mg tab] 650 mg PO Q6 PRN #20 tab 06/28/16 Albuterol HFA [Ventolin HFA 90 2 puff IH Q6H PRN #0 inhaler 07/21/16 mcg/actuation (8 g)] Ammonium Lactate 12% [Lac-Hydrin 1 ea TOP BID tube 07/21/16 12% Cream (140 g)] Cholecalciferol [Vitamin D 1000 IU] 1,000 iu PO DAILY tab 07/21/16 Cyclobenzaprine [Flexeril] 10 mg PO TID PRN #0 tab 07/21/16 DiphenhydrAMINE [Benadryl] 50 mg IVP Q6 PRN #0 vial 07/21/16 Ertapenem 1gm in NS 50ml [Invanz] 1 gm IVPB DAILY 14 Days bag 07/21/16 Ferrous Sulfate [Feosol] 325 mg PO DAILY tab 07/21/16 Levothyroxine [Synthroid] 125 mcg PO DAILY@0630 tab 07/21/16 Metoprolol Tartrate [Lopressor] 50 mg PO Q12 tab 07/21/16 Multimineral/Multivitamin 1 tab PO DAILY tab 07/21/16 [Therapeutic-M Tab] Ondansetron [Zofran Inj] 4 mg IVP Q6 PRN #0 vial 07/21/16 Pantoprazole [Protonix EC Tab] 40 mg PO DAILY ect 07/21/16 Rivaroxaban [Xarelto] 20 mg PO DAILY tab 07/21/16 Umeclidinium Brm/Vilanterol Tr 1 puff IH DAILY 07/21/16 [Anoro Ellipta 62.5-25 Mcg INH] Vancomycin/0.9 % Sod Chloride 750 mg IV 12 14 Days plast..bag 07/21/16 [Vanco 750 mg/250 ml-0.9% NaCl] oxyCODONE/Acetaminophen [Percocet 1 tab PO Q4 PRN #0 tab 07/21/16 5/325 mg Tab] oxyCODONE/Acetaminophen [Percocet 2 tab PO Q6 PRN #0 tab 07/21/16 5/325 mg Tab] Ciprofloxacin [Cipro] 500 mg PO BID #20 tab 02/11/17 - Allergies Allergies/Adverse Reactions: Allergies Allergy/AdvReac Type Severity Reaction Status Date / Time No Known Allergies Allergy Verified 02/11/17 14:33 Review of Systems ROS Statement: Except As Marked, All Systems Reviewed And Found Negative Constitutional: Negative for: Fever, Chills Musculoskeletal: Positive for: Foot Pain (Right ankle swelling and infection) Physical Exam - Reviewed Nursing Documentation Reviewed: Yes Vital Signs Reviewed: Yes - Physical Exam Appears: Positive for: Well, Non-toxic, No Acute Distress Head Exam: Positive for: ATRAUMATIC, NORMAL INSPECTION, NORMOCEPHALIC Skin: Positive for: Warm, Dry Eye Exam: Positive for: Normal appearance Neck: Positive for: Normal Cardiovascular/Chest: Positive for: Regular Rate, Rhythm. Negative for: Murmur Respiratory: Negative for: Respiratory Distress Extremity: Positive for: Normal ROM, Swelling (Superficial ulcer to the right lateral ankle, approx. 6 cm in diameter), Other (2 small areas of skin breakdown to the medial ankle) Neurologic/Psych: Positive for: Alert, Oriented - Laboratory Results Result Diagrams: 02/11/17 15:36 02/11/17 15:36 - ECG O2 Sat by Pulse Oximetry: 95 (RA) Pulse Ox Interpretation: Normal Medical Decision Making Medical Decision Making: Time: 15:28 Initial Plan: --CMP --CBC --Blood culture --X-Ray Right Ankle --Will page Podiatry for consult Time: 15:49 X-Ray Right Ankle: FINDINGS: BONES: No no acute fracture is identified at this time. No destructive lytic or blastic change. JOINTS: PA seen to be status post arthrodesis of the tibiotalar as well as talocalcaneal joints by IA AV compression screw as well as by a lateral compression plate and multiple transfixing screws. Prior ostectomy of the lateral malleolus is appreciated. No suspicious pattern to suggest osteomyelitis by radiography standards. SOFT TISSUES: Phleboliths are suggested at the soft tissues of the distal leg medially and laterally with limited lateral ankle soft tissue edema identified. No definite emphysematous soft tissue changes. OTHER FINDINGS: None. IMPRESSION: No overt radiographic sign of osteomyelitis with in this patient status post tibiotalar as well as subtalar joint arthrodesis as discussed above. --Pending Podiatry consult Time: 18:29 --Podiatry resident discussed case w/ Dr. Pedroza, who recommends obtaining uric acid level, and ordering US Duplex Lower Extremity Vein Bilat. Time: 21:29 US DUPLEX LOWER EXTREMITY VEIN, BILATERAL: FINDINGS: Right deep veins: Common femoral, superficial femoral, popliteal and posterior tibial veins were evaluated. Left deep veins: Common femoral, superficial femoral, popliteal and posterior tibial veins were evaluated. Soft tissues: There is 4.2 x 1.1 cm node in the right thigh All veins examined are compressible. There are no intraluminal filling defects. There is expected blood flow on Doppler imaging. There is change in waveform with augmentation. Impression: No deep venous thrombosis in the visualized vascular segments of the lower extremities; mild enlarged right thigh node Scribe Attestation: Documented by Pooja Veronn, acting as a scribe for Crissy Sidhu PA-C Provider Scribe Attestation: All medical record entries made by the Scribe were at my direction and personally dictated by me. I have reviewed the chart and agree that the record accurately reflects my personal performance of the history, physical exam, medical decision making, and the department course for this patient. I have also personally directed, reviewed, and agree with the discharge instructions and disposition. Disposition - Clinical Impression Clinical Impression: Cellulitis of left leg, Venous stasis Counseled Patient/Family Regarding: Diagnosis, Need For Followup, Rx Given - Disposition Referrals: Podiatry Clinic [Outside] Disposition: Routine/Home Disposition Time: 21:32 Condition: GOOD Additional Instructions: Please follow-up with Dr. Pedroza in the [facility] on saturday. Prescriptions: Ciprofloxacin [Cipro] 500 mg PO BID #20 tab Instructions: Cellulitis (ED) Forms: [employer] (Icelandic)
--- NOTE | 2017-02-11 16:03 | RAD ---
PROCEDURE: Right Ankle Radiographs. HISTORY: infection COMPARISON: None FINDINGS: BONES: No no acute fracture is identified at this time. No destructive lytic or blastic change. JOINTS: PA seen to be status post arthrodesis of the tibiotalar as well as talocalcaneal joints by IA AV compression screw as well as by a lateral compression plate and multiple transfixing screws. Prior ostectomy of the lateral malleolus is appreciated. No suspicious pattern to suggest osteomyelitis by radiography standards. SOFT TISSUES: Phleboliths are suggested at the soft tissues of the distal leg medially and laterally with limited lateral ankle soft tissue edema identified. No definite emphysematous soft tissue changes. OTHER FINDINGS: None. IMPRESSION: No overt radiographic sign of osteomyelitis with in this patient status post tibiotalar as well as subtalar joint arthrodesis as discussed above.
[2017-02-11 16:11] LABS: BASO % 0.6 % (0.0-2.0); EOS # 0.1 K/uL (0.0-0.7); EOS % 1.8 % (0.0-4.0); HEMATOCRIT 39.8 % (35.0-51.0); LYMPH # 1.2 K/uL (1.0-4.3); LYMPH % 16.1 % (20.0-40.0); MEAN CELL VOLUME 98.6 fl (80.0-94.0); MEAN CORPUSCULAR HEMOGLOBIN 33.4 pg (27.0-31.0); MEAN CORPUSCULAR HGB CONC 33.8 g/dL (33.0-37.0); MONO # 0.7 K/uL (0.0-0.8); MONO % 8.8 % (0.0-10.0); NEUT # 5.6 K/uL (1.8-7.0); NEUT % 72.7 % (50.0-75.0); RED CELL DISTRIBUTION WIDTH 12.7 % (11.5-14.5); WHITE BLOOD COUNT 7.7 K/uL (4.8-10.8)
[2017-02-11 16:37] LABS: ALB/GLOB RATIO 1.3 (1.0-2.1); ALKALINE PHOSPHATASE 102 U/L (38-126); ALT/SGPT 35 U/L (21-72); AST/SGOT 29 U/L (17-59); BILIRUBIN,TOTAL 0.5 mg/dl (0.2-1.3); BLOOD UREA NITROGEN 19 mg/dl (9-20); CALCIUM 9.9 mg/dL (8.4-10.2); CARBON DIOXIDE 29 mmol/L (22-30); CHLORIDE 102 mmol/L (98-107); GFR AFRICAN-AMERICAN > 60; GLUCOSE,RANDOM 81 mg/dL (75-110); POTASSIUM 4.1 MMOL/L (3.6-5.0); SODIUM 143 mmol/l (132-148); TOTAL PROTEIN 8.6 G/DL (6.3-8.2)
--- NOTE | 2017-02-11 17:32 | CP.PCM.CON ---
History of Present Illness - History of Present Illness History of Present Illness: 47 y/o male with PMHx of Anemia, Arthritis, COPD, HTN, Hypothyroidism seen and evaluated at bedside in ED complaining of non-healing right leg wounds. Patient states that he was sent to the ED by his primary doctor,Dr. Andino for evaluation of the right ankle. Patient states Dr. Andino prescribed him Augmentin for resolution of ulcerations/redness, admits he has been taking Augmentin twice a day for 20 days and has not seen any changes to his wounds. Patient also states that the swelling to the right ankle has been present for months. Patient states that he also has left leg cellulitis which has been treated with antibiotic creams and oral antibiotics. Patient states he has been putting Triamcinolone cream to his left leg every day. Patient denies of any recent F/N/ V/C/SOB/chest pain/calf pain. Patient denies of any other pedal complains at this time PMHx: Anemia, Arthritis, COPD, HTN, Hypothyroidism PSHx: Left total hip replacement Allergies: N.K.D.A SHx: agrees to smoking, occasional EtOH use, former illicit drug use (marijuana , cocaine, heroin) Review of Systems - Review of Systems All systems: reviewed and no additional remarkable complaints except (as per HPI ) - Constitutional Constitutional: As Per HPI Past Patient History - Infectious Disease Hx of Infectious Diseases: None - Past Medical History & Family History Past Medical History?: Yes - Past Social History Alcohol: Social - CARDIAC Hx Hypertension: Yes - PULMONARY Hx Chronic Obstructive Pulmonary Disease (COPD): Yes - ENDOCRINE/METABOLIC Hx Hypothyroidism: Yes - HEMATOLOGICAL/ONCOLOGICAL Hx Anemia: Yes - INTEGUMENTARY Hx Cellulitis: Yes - MUSCULOSKELETAL/RHEUMATOLOGICAL Hx Arthritis: Yes - PSYCHIATRIC Hx Psychosis: Yes Hx Substance Use: Yes 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 - SURGICAL HISTORY Hx Surgeries: No Hx Joint Replacement: Yes (left total knee replacement, right total hip replacement) - ANESTHESIA Hx Anesthesia: Yes Hx Anesthesia Reactions: No Hx Malignant Hyperthermia: No Meds Home Medications: Home Medication List Medication Instructions Recorded Confirmed Type Ciprofloxacin [Cipro] 500 mg PO BID #20 tab 02/11/17 Rx Allergies/Adverse Reactions: Allergies Allergy/AdvReac Type Severity Reaction Status Date / Time No Known Allergies Allergy Verified 02/11/17 14:33 Physical Exam - Constitutional Appears: Well, Non-toxic, No Acute Distress - Extremities Exam Additional comments: Bilateral Lower Extremity focused exam: VASC: DP pulses palpable 2/4 b/l, PT pulses palpable 1/4 b/l, Cap Refill time: < 3 sec to all digits, Temp gradient: warm to warm from proximal to distal, non- pitting edema noted to the distal leg extending to the dorsum of the right foot DERM: Erythema accompanying the non-pitting edema to LLE, no interdigital maceration. Crusted lesions with overlying white discoloration noted to medial and lateral aspects of right leg and ankle - no purulence, drainage, or fluctuance noted NEURO: Protective sensation grossly intact ORTHO: Mild tenderness on palpation of the right distal lower extremity to wounds, tenderness during active and passive ROM at the ankle joint, MMT: 5/5 during DF, PF, inversion and eversion - Neurological Exam Neurological exam: Alert, Oriented x3 - Psychiatric Exam Psychiatric exam: Normal Affect, Normal Mood Results - Vital Signs Recent Vital Signs: Last Vital Signs Temp 97.6 F 02/11/17 14:34 Pulse 84 02/11/17 14:34 Resp 18 02/11/17 14:34 BP 153/81 H 02/11/17 14:34 Pulse Ox 95 02/11/17 17:02 - Labs Result Diagrams: 02/11/17 15:36 02/11/17 15:36 Labs: Laboratory Results - last 24 hr 02/11/17 02/11/17 15:36 15:36 WBC 7.7 RBC 4.03 L Hgb 13.5 D Hct 39.8 MCV 98.6 H MCH 33.4 H MCHC 33.8 RDW 12.7 Plt Count 223 MPV 9.0 Neut % (Auto) 72.7 Lymph % (Auto) 16.1 L Dundy % (Auto) 8.8 Eos % (Auto) 1.8 Baso % (Auto) 0.6 Neut # 5.6 Lymph # 1.2 Dundy # 0.7 Eos # 0.1 Baso # 0.0 Sodium 143 Potassium 4.1 Chloride 102 Carbon Dioxide 29 Anion Gap 17 BUN 19 Creatinine 1.3 Est GFR ( Amer) > 60 Est GFR (Non-Af Amer) 59 Random Glucose 81 Calcium 9.9 Total Bilirubin 0.5 AST 29 ALT 35 Alkaline Phosphatase 102 Total Protein 8.6 H Albumin 4.8 Globulin 3.8 Albumin/Globulin Ratio 1.3 Assessment & Plan - Assessment and Plan (Free Text) Assessment: 47 y/o male with PMHx of Anemia, Arthritis, COPD, HTN, Hypothyroidism seen and evaluated at bedside in ED for right ankle non-healing ulcerations Plan: Patient seen and evaluated at bedside in ED Patient discussed in details with attending Dr. Pedroza Labs, charts and vitals reviewed - afebrile and WBC @ 7.7 LLE venous duplex reviewed - negative for DVT Recommend ciprofloxacin for ulcerations Recommend continuation of triamcinolone to LLE Stable from podiatry standpoint Patient to follow up with Dr. Pedroza in the podiatry clinic next week Saturday, 02/18 Thank you for the podiatry consult and allowing to take part in patient care - Date & Time Date: 02/11/17 Time: 17:35
[2017-02-11 19:05] LABS: URIC ACID 7.3 mg/Dl (3.5-8.5)
--- NOTE | 2017-02-11 21:29 | US ---
EXAM: US Duplex Bilateral Lower Extremity Veins EXAM DATE/TIME: 02/11/2017 6:29 PM CLINICAL HISTORY: 47 years old, male; Pain; Leg, lower; Bilateral; Additional info: R/O dvt TECHNIQUE: Real-time ultrasound scan of the veins of the bilateral lower extremities with color Doppler flow, spectral waveform analysis and compression. COMPARISON: There are no prior studies for comparison. FINDINGS: Right deep veins: Common femoral, superficial femoral, popliteal and posterior tibial veins were evaluated. Left deep veins: Common femoral, superficial femoral, popliteal and posterior tibial veins were evaluated. Soft tissues: There is 4.2 x 1.1 cm node in the right thigh All veins examined are compressible. There are no intraluminal filling defects. There is expected blood flow on Doppler imaging. There is change in waveform with augmentation. Impression: No deep venous thrombosis in the visualized vascular segments of the lower extremities; mild enlarged right thigh node
[2017-02-11 22:34] VITALS: BP 148/87; O2SAT 100
== END 2017-02-11 22:35 | disposition home or self-care (01) ==
LOC: H.ER 14:29
DX: L03.116 Cellulitis of left lower limb (principal); I87.8 Other specified disorders of veins; E03.9 Hypothyroidism, unspecified; I10 Essential (primary) hypertension; Z79.01 Long term (current) use of anticoagulants

== ENCOUNTER 2017-07-09 14:32 | Emergency (ER) | payer MEDICARE, MEDICAID ==
[2017-07-09 14:32] VITALS: BMI 31.2
--- NOTE | 2017-07-09 14:53 | ED PDOC ---
HPI: General Adult Time Seen by Provider: 07/09/17 14:53 Chief Complaint (Nursing): Hip Pain Chief Complaint (Provider): hip pain History Per: Patient History/Exam Limitations: no limitations Onset/Duration Of Symptoms: Days (x4) Current Symptoms Are (Timing): Still Present Recently: Treated By A Physician Additional Complaint(s): Timothy Corrigan is a 47 year old male who presents to the emergency department complaining of a worsening left hip pain for the past 4 days. Patient states pain began after he did stretching exercises at home 4 days ago. Patient took train today to ED and he states he is able to walk. He saw his PMD, Dr. Andino yesterday for the pain and was prescribed Diclofenac 75mg which has not helped. He also received at injection at PMD office and he states this did not help either. Patient had a left hip placement done by Dr. Jones last June and completed the inpatient and outpatient rehab course. He denies any other medical complaints. He denies any recent fall or trauma. PMD: Jas Andino Past Medical History Reviewed: Historical Data, Nursing Documentation, Vital Signs Vital Signs: Last Vital Signs Temp 97.3 F L 07/09/17 14:49 Pulse 77 07/09/17 14:49 Resp 18 07/09/17 14:49 BP 135/87 07/09/17 14:49 Pulse Ox 96 07/09/17 16:17 - Medical History PMH: Anemia, Arthritis, COPD, HTN, Hypothyroidism - Surgical History Other surgeries: Bilateral hip replacement, left knee replacement, right ankle surgery - Family History Family History: States: No Known Family Hx - Living Arrangements Living Arrangements: With Family - Social History Current smoker - smoking cessation education provided: No Alcohol: None Drugs: Denies - Home Medications Home Medications: Ambulatory Orders Medication Instructions Recorded Triamterene/Hydrochlorothiazid 1 tab PO DAILY 06/21/16 [Triamterene-Hctz 37.5-25 mg Tb] Acetaminophen [Tylenol 325mg tab] 650 mg PO Q6 PRN #20 tab 06/28/16 Albuterol HFA [Ventolin HFA 90 2 puff IH Q6H PRN #0 inhaler 07/21/16 mcg/actuation (8 g)] Ammonium Lactate 12% [Lac-Hydrin 1 ea TOP BID tube 07/21/16 12% Cream (140 g)] Cholecalciferol [Vitamin D 1000 IU] 1,000 iu PO DAILY tab 07/21/16 Cyclobenzaprine [Flexeril] 10 mg PO TID PRN #0 tab 07/21/16 DiphenhydrAMINE [Benadryl] 50 mg IVP Q6 PRN #0 vial 07/21/16 Ertapenem 1gm in NS 50ml [Invanz] 1 gm IVPB DAILY 14 Days bag 07/21/16 Ferrous Sulfate [Feosol] 325 mg PO DAILY tab 07/21/16 Levothyroxine [Synthroid] 125 mcg PO DAILY@0630 tab 07/21/16 Metoprolol Tartrate [Lopressor] 50 mg PO Q12 tab 07/21/16 Multimineral/Multivitamin 1 tab PO DAILY tab 07/21/16 [Therapeutic-M Tab] Ondansetron [Zofran Inj] 4 mg IVP Q6 PRN #0 vial 07/21/16 Pantoprazole [Protonix EC Tab] 40 mg PO DAILY ect 07/21/16 Rivaroxaban [Xarelto] 20 mg PO DAILY tab 07/21/16 Umeclidinium Brm/Vilanterol Tr 1 puff IH DAILY 07/21/16 [Anoro Ellipta 62.5-25 Mcg INH] Vancomycin/0.9 % Sod Chloride 750 mg IV 12 14 Days plast..bag 07/21/16 [Vanco 750 mg/250 ml-0.9% NaCl] oxyCODONE/Acetaminophen [Percocet 1 tab PO Q4 PRN #0 tab 07/21/16 5/325 mg Tab] oxyCODONE/Acetaminophen [Percocet 2 tab PO Q6 PRN #0 tab 07/21/16 5/325 mg Tab] Ciprofloxacin [Cipro] 500 mg PO BID #20 tab 02/11/17 Cyclobenzaprine [Cyclobenzaprine 10 mg PO TID PRN #20 tab 07/09/17 HCl] Nabumetone [Relafen] 500 mg PO BID #20 tab 07/09/17 - Allergies Allergies/Adverse Reactions: Allergies Allergy/AdvReac Type Severity Reaction Status Date / Time No Known Allergies Allergy Verified 02/11/17 14:33 Review of Systems ROS Statement: Except As Marked, All Systems Reviewed And Found Negative Constitutional: Negative for: Fever Musculoskeletal: Positive for: Other (left hip pain x 4 days, denies fall ) Physical Exam - Reviewed Nursing Documentation Reviewed: Yes Vital Signs Reviewed: Yes - Physical Exam Appears: Positive for: Non-toxic Head Exam: Positive for: ATRAUMATIC, NORMAL INSPECTION, NORMOCEPHALIC Skin: Positive for: Normal Color. Negative for: Rash Eye Exam: Positive for: Normal appearance Neck: Positive for: Normal, Painless ROM Back: Negative for: Vertebral Tenderness Extremity: Positive for: Other (no swelling or erythema noted to left hip region , normal distal sensation left lower extremity, full rom of left hip). Negative for: Pedal Edema Neurologic/Psych: Positive for: Alert, Oriented - ECG O2 Sat by Pulse Oximetry: 96 (RA) Pulse Ox Interpretation: Normal - Other Rad Left hip and pelvis x-ray X-Ray: Interpreted by Me, Viewed By Me X-Ray Interpretation: no fx, no dis, well aligned prothesis Medical Decision Making Medical Decision Making: Initial Impression: 47 y/o male with left hip pain Initial Plan: --Toradol 30 mg IM --Tylenol 325mg tab 975 mg PO --Hip Min 2V w/ Pelvis LT [RAD] Patient reports some improvement to pain s/p meds given in ED. Patient aware of x-ray results. Rx given for relafen and flexeril. Patient advised to stop taking diclofenac. Patient was instructed to follow up with orthopedist for further evaluation. ~ Scribe Attestation: Documented by Jay Martines, acting as a scribe for Rocio Parker PA-C. Provider Scribe Attestation: All medical record entries made by the Scribe were at my direction and personally dictated by me. I have reviewed the chart and agree that the record accurately reflects my personal performance of the history, physical exam, medical decision making, and the department course for this patient. I have also personally directed, reviewed, and agree with the discharge instructions and disposition. Disposition - Clinical Impression Clinical Impression: Hip pain - Patient ED Disposition Is Patient to be Admitted: No Counseled Patient/Family Regarding: Studies Performed, Diagnosis, Need For Followup, Rx Given - Disposition Referrals: James Jones III, MD [Staff Provider] - Disposition: Routine/Home Disposition Time: 16:38 Condition: STABLE Additional Instructions: Take rx meds as directed. Rest and ice affected area. Follow up with orthopedist in 2-3 days. Prescriptions: Cyclobenzaprine [Cyclobenzaprine HCl] 10 mg PO TID PRN #20 tab PRN Reason: Muscle Spasm Nabumetone [Relafen] 500 mg PO BID #20 tab Instructions: Hip Pain Forms: [facility] (Swazi)
[2017-07-09 17:55] VITALS: BP 130/78; PULSE 78; RESP 20; TEMP 98; O2SAT 99
--- NOTE | 2017-07-09 18:18 | RAD ---
PROCEDURE: Left Hip X-ray Radiographs. HISTORY: left hip pain COMPARISON: 07/15/2016 FINDINGS: BONES: In the interim, the patient has undergone left CRYSTAL. Femoral and acetabular components are within normal limits and there is no evidence of protrusio, subluxation, dislocation or loosening. Stable position of the right CRYSTAL. SOFT TISSUES: Normal. OTHER FINDINGS: None. IMPRESSION: No acute findings related to/accounting for the clinical presentation. Additional benign and/or incidental findings described above.
== END 2017-07-09 17:56 | disposition home or self-care (01) ==
LOC: H.ER 14:32
DX: M25.552 Pain in left hip (principal); E03.9 Hypothyroidism, unspecified; I10 Essential (primary) hypertension; Z96.643 Presence of artificial hip joint, bilateral; Z96.652 Presence of left artificial knee joint
CPT/HCPCS: 73502; 96372; 99282; J1885